=== PATIENT | female | born 1995 | race American Indian/Alaskan Native ===

== ENCOUNTER 2017-02-20 09:06 | Emergency (ER) | payer MEDICAID ==
[2017-02-20 09:29] VITALS: BP 120/86
[2017-02-20] MEDS ORDERED: D5NS 0.2% 1,000 ML IV SCH (10:00)
[2017-02-20 10:06] LABS: Basophils % (Auto) 1.1 % (0.0-1.8); Hemoglobin 9.3 gm/dl (10.1-14.3); Mean Corpuscular HGB Conc 33 % (30-34); Mean Corpuscular Volume 78 fl (79-97); Platelet Count 419 K/mm3 (140-440); Red Blood Count 3.58 M/mm3 (3.65-5.03)
[2017-02-20 10:09] LABS: Mean Corpuscular Hemoglobin 26 pg (28-32); Red Cell Distribution Width 23.1 % (13.2-15.2)
== END 2017-02-20 10:59 | disposition left against medical advice (07) ==
LOC: ED 09:06
DX: R10.9 Unspecified abdominal pain (principal); Z53.21 Procedure and treatment not carried out due to patient leaving prior to being seen by health care provider
CPT/HCPCS: 36415; 85025; 85045

== ENCOUNTER 2019-03-22 16:12 | Emergency (ER) | payer MEDICAID ==
--- NOTE | 2019-03-22 16:28 | Emergency Department Report ---
Blank Doc - Documentation Documentation: 24-year-old female that presents with bilateral legs pain with sickle cell his tory. This initial assessment/diagnostic orders/clinical plan/treatment(s) is/are subject to change based on patient's health status, clinical progression and re- assessment by fellow clinical providers in the ED. Further treatment and workup at subsequent clinical providers discretion. Patient/guardians urged not to elope from the ED as their condition may be serious if not clinically assessed and managed. Initial orders include: 1- Patient sent to MAIN for further evaluation and treatment 2- labs 3- UA
[2019-03-22 17:30] LABS: Hematocrit 29.9 % (30.3-42.9); Hemoglobin 9.7 gm/dl (10.1-14.3); Mean Corpuscular HGB Conc 33 % (30-34); Mean Corpuscular Volume 81 fl (79-97); Red Blood Count 3.68 M/mm3 (3.65-5.03); Red Cell Distribution Width 25.1 % (13.2-15.2)
[2019-03-22 17:31] LABS: Platelet Count 436 K/mm3 (140-440)
[2019-03-22 17:33] LABS: BUN/Creatinine Ratio 13; Blood Urea Nitrogen 5 mg/dL (7-17); Calcium 9.3 mg/dL (8.4-10.2); Hemolysis Index 35
[2019-03-22 18:06] LABS: Anisocytosis 2+; Basophils % (Manual) 0 % (0.0-1.8); Poikilocytosis 2+; Total Cells Counted 100
[2019-03-22 18:07] LABS: Ovalocytes Few; Sickle Cells 1+; Target Cells 1+; Tear Drop Cells Rare
[2019-03-22 18:08] LABS: Platelet Estimate Consistent w Auto
[2019-03-22] MEDS ORDERED: SODIUM CHLORIDE 0.9% 1000 ML 1,000 ML IV ONE (18:22)
[2019-03-22] MEDS ORDERED: diphenhydrAMINE 50 MG/ML VIAL IV ONE (18:22)
[2019-03-22] MEDS ORDERED: HYDROmorphone 1 MG/1 ML INJ IV ONE ×3 (18:22→21:44)
[2019-03-22] MEDS ORDERED: ONDANSETRON 4 MG/2 ML INJ IV ONE (18:22)
--- NOTE | 2019-03-22 19:33 | Emergency Department Report ---
ED General Adult HPI - General Chief complaint: Sickle Cell Crisis Stated complaint: SICKLE CELL/ANEMIA CRISIS Time Seen by Provider: 03/22/19 16:26 Source: patient Mode of arrival: Ambulatory Limitations: No Limitations - History of Present Illness Initial comments: The patient presents to the emergency department with a chief complaint of sickle cell crisis. Patient complains of bilateral leg pain is consistent with prior sickle cell crises. Patient states the last 3 days she has had no relief with Percocet and believes her crisis is secondary to the change in weather. She denies chest pain or shortness of breath. -: Sudden Location: lower extremity Radiation: extremity Severity scale (0 -10): 10 Quality: sharp Consistency: constant Improves with: none Worsens with: movement Associated Symptoms: denies other symptoms Treatments Prior to Arrival: none - Related Data Home Medications Medication Instructions Recorded Confirmed Last Taken Hydroxyurea [Hydrea] 1,500 mg PO DAILY 03/22/19 03/22/19 Unknown Oxycodone HCl/Acetaminophen 1 each PO Q2H 03/22/19 03/22/19 Unknown [Percocet 10/325 mg] Penicillin V Potassium 500 mg PO DAILY 03/22/19 03/22/19 Unknown Allergies Allergy/AdvReac Type Severity Reaction Status Date / Time ceftriaxone [From Rocephin] Allergy Anaphylaxis Verified 03/22/19 16:16 vancomycin Allergy Anaphylaxis Verified 03/22/19 16:16 ED Review of Systems ROS: Stated complaint: SICKLE CELL/ANEMIA CRISIS Other details as noted in HPI Comment: All other systems reviewed and negative Constitutional: denies: chills, fever Eyes: denies: eye pain, eye discharge, vision change ENT: denies: ear pain, throat pain Respiratory: denies: cough, shortness of breath, wheezing Cardiovascular: denies: chest pain, palpitations Endocrine: no symptoms reported Gastrointestinal: denies: abdominal pain, nausea, diarrhea Genitourinary: denies: urgency, dysuria, discharge Musculoskeletal: denies: back pain, joint swelling, arthralgia Skin: denies: rash, lesions Neurological: denies: headache, weakness, paresthesias Psychiatric: denies: anxiety, depression Hematological/Lymphatic: denies: easy bleeding, easy bruising ED Past Medical Hx - Past Medical History Previous Medical History?: Yes Hx Sickle Cell Disease: Yes Hx Asthma: Yes - Surgical History Past Surgical History?: Yes Hx Cholecystectomy: Yes Additional Surgical History: spleen, tonsilectomy - Social History Smoking Status: Never Smoker Substance Use Type: None - Medications Home Medications: Home Medications Medication Instructions Recorded Confirmed Last Taken Type Hydroxyurea [Hydrea] 1,500 mg PO DAILY 03/22/19 03/22/19 Unknown History Oxycodone HCl/Acetaminophen 1 each PO Q2H 03/22/19 03/22/19 Unknown History [Percocet 10/325 mg] Penicillin V Potassium 500 mg PO DAILY 03/22/19 03/22/19 Unknown History ED Physical Exam - General Limitations: No Limitations General appearance: alert, in no apparent distress - Head Head exam: Present: atraumatic, normocephalic - Eye Eye exam: Present: normal appearance, PERRL, EOMI - ENT ENT exam: Present: mucous membranes moist - Neck Neck exam: Present: normal inspection - Respiratory Respiratory exam: Present: normal lung sounds bilaterally. Absent: respiratory distress - Cardiovascular Cardiovascular Exam: Present: regular rate, normal rhythm. Absent: systolic murmur, diastolic murmur, rubs, gallop - GI/Abdominal GI/Abdominal exam: Present: soft, normal bowel sounds. Absent: distended, tenderness - Extremities Exam Extremities exam: Present: normal inspection - Back Exam Back exam: Present: normal inspection - Neurological Exam Neurological exam: Present: alert, oriented X3, CN II-XII intact. Absent: motor sensory deficit - Psychiatric Psychiatric exam: Present: normal affect, normal mood - Skin Skin exam: Present: warm, dry, intact, normal color. Absent: rash ED Course Vital Signs 03/22/19 03/22/19 16:17 20:43 Temperature 98.3 F Pulse Rate 85 65 Respiratory 18 20 Rate Blood Pressure 144/64 126/54 [Left] O2 Sat by Pulse 99 99 Oximetry ED Medical Decision Making - Lab Data Result diagrams: 03/22/19 16:50 03/22/19 16:50 Lab Results 03/22/19 03/22/19 03/22/19 Range/Units 16:50 16:50 16:50 WBC 11.1 H (4.5-11.0) K/mm3 RBC 3.68 (3.65-5.03) M/mm3 Hgb 9.7 L (10.1-14.3) gm/dl Hct 29.9 L (30.3-42.9) % MCV 81 (79-97) fl MCH 26 L (28-32) pg MCHC 33 (30-34) % RDW 25.1 H (13.2-15.2) % Plt Count 436 (140-440) K/mm3 Add Manual Diff Complete Total Counted 100 Seg Neuts % (Manual) 52.0 (40.0-70.0) % Band Neutrophils % 0 % Lymphocytes % (Manual) 32.0 (13.4-35.0) % Reactive Lymphs % (Man) 0 % Monocytes % (Manual) 13.0 H (0.0-7.3) % Eosinophils % (Manual) 3.0 (0.0-4.3) % Basophils % (Manual) 0 (0.0-1.8) % Metamyelocytes % 0 % Myelocytes % 0 % Promyelocytes % 0 % Blast Cells % 0 % Nucleated RBC % Not Reportable Seg Neutrophils # Man 5.8 (1.8-7.7) K/mm3 Band Neutrophils # 0.0 K/mm3 Lymphocytes # (Manual) 3.6 (1.2-5.4) K/mm3 Abs React Lymphs (Man) 0.0 K/mm3 Monocytes # (Manual) 1.4 H (0.0-0.8) K/mm3 Eosinophils # (Manual) 0.3 (0.0-0.4) K/mm3 Basophils # (Manual) 0.0 (0.0-0.1) K/mm3 Metamyelocytes # 0.0 K/mm3 Myelocytes # 0.0 K/mm3 Promyelocytes # 0.0 K/mm3 Blast Cells # 0.0 K/mm3 WBC Morphology Not Reportable Hypersegmented Neuts Not Reportable Hyposegmented Neuts Not Reportable Hypogranular Neuts Not Reportable Smudge Cells Not Reportable Toxic Granulation Not Reportable Toxic Vacuolation Not Reportable Dohle Bodies Not Reportable Pelger-Huet Anomaly Not Reportable Adwoa Rods Not Reportable Platelet Estimate Consistent w auto Clumped Platelets Not Reportable Plt Clumps, EDTA Not Reportable Large Platelets Not Reportable Giant Platelets Not Reportable Platelet Satelliting Not Reportable Plt Morphology Comment Not Reportable RBC Morphology Not Reportable Dimorphic RBCs Not Reportable Polychromasia Few Hypochromasia Not Reportable Poikilocytosis 2+ Anisocytosis 2+ Microcytosis Not Reportable Macrocytosis Not Reportable Spherocytes Not Reportable Pappenheimer Bodies Not Reportable Sickle Cells 1+ Target Cells 1+ Tear Drop Cells Rare Ovalocytes Few Helmet Cells Not Reportable Brown-Edson Bodies Not Reportable [place] Rings Not Reportable Patria Cells Not Reportable Bite Cells Not Reportable Crenated Cell Not Reportable Elliptocytes Few Acanthocytes (Spur) Not Reportable Rouleaux Not Reportable Hemoglobin C Crystals Not Reportable Schistocytes Not Reportable Malaria parasites Not Reportable Percent Retic 7.63 H (0.78-2.58) % Jose Luis Bodies Not Reportable Hem Pathologist Commnt No Sodium 137 (137-145) mmol/L Potassium 3.7 (3.6-5.0) mmol/L Chloride 105.4 (98-107) mmol/L Carbon Dioxide 19 L (22-30) mmol/L Anion Gap 16 mmol/L BUN 5 L (7-17) mg/dL Creatinine 0.4 L (0.7-1.2) mg/dL Estimated GFR > 60 ml/min BUN/Creatinine Ratio 13 % Glucose 83 (65-100) mg/dL Calcium 9.3 (8.4-10.2) mg/dL Lactate Dehydrogenase (91-180) units/L HCG, Qual Negative (Negative) 03/22/19 Range/Units 18:46 WBC (4.5-11.0) K/mm3 RBC (3.65-5.03) M/mm3 Hgb (10.1-14.3) gm/dl Hct (30.3-42.9) % MCV (79-97) fl MCH (28-32) pg MCHC (30-34) % RDW (13.2-15.2) % Plt Count (140-440) K/mm3 Add Manual Diff Total Counted Seg Neuts % (Manual) (40.0-70.0) % Band Neutrophils % % Lymphocytes % (Manual) (13.4-35.0) % Reactive Lymphs % (Man) % Monocytes % (Manual) (0.0-7.3) % Eosinophils % (Manual) (0.0-4.3) % Basophils % (Manual) (0.0-1.8) % Metamyelocytes % % Myelocytes % % Promyelocytes % % Blast Cells % % Nucleated RBC % Seg Neutrophils # Man (1.8-7.7) K/mm3 Band Neutrophils # K/mm3 Lymphocytes # (Manual) (1.2-5.4) K/mm3 Abs React Lymphs (Man) K/mm3 Monocytes # (Manual) (0.0-0.8) K/mm3 Eosinophils # (Manual) (0.0-0.4) K/mm3 Basophils # (Manual) (0.0-0.1) K/mm3 Metamyelocytes # K/mm3 Myelocytes # K/mm3 Promyelocytes # K/mm3 Blast Cells # K/mm3 WBC Morphology Hypersegmented Neuts Hyposegmented Neuts Hypogranular Neuts Smudge Cells Toxic Granulation Toxic Vacuolation Dohle Bodies Pelger-Huet Anomaly Adwoa Rods Platelet Estimate Clumped Platelets Plt Clumps, EDTA Large Platelets Giant Platelets Platelet Satelliting Plt Morphology Comment RBC Morphology Dimorphic RBCs Polychromasia Hypochromasia Poikilocytosis Anisocytosis Microcytosis Macrocytosis Spherocytes Pappenheimer Bodies Sickle Cells Target Cells Tear Drop Cells Ovalocytes Helmet Cells Brown-Edson Bodies [place] Rings [place] Cells Bite Cells Crenated Cell Elliptocytes Acanthocytes (Spur) Rouleaux Hemoglobin C Crystals Schistocytes Malaria parasites Percent Retic (0.78-2.58) % Jose Luis Bodies Hem Pathologist Commnt Sodium (137-145) mmol/L Potassium (3.6-5.0) mmol/L Chloride (98-107) mmol/L Carbon Dioxide (22-30) mmol/L Anion Gap mmol/L BUN (7-17) mg/dL Creatinine (0.7-1.2) mg/dL Estimated GFR ml/min BUN/Creatinine Ratio % Glucose (65-100) mg/dL Calcium (8.4-10.2) mg/dL Lactate Dehydrogenase 267 H (91-180) units/L HCG, Qual (Negative) - Medical Decision Making The patient has some relief of pain with 3 doses of Dilaudid Discussed admission with patient but she politely declined stating that being admitted to the hospital is depressing and would rather go home Critical care attestation.: If time is entered above; I have spent that time in minutes in the direct care of this critically ill patient, excluding procedure time. ED Disposition Clinical Impression: Sickle cell anemia with crisis Disposition: DC-01 TO HOME OR SELFCARE Is pt being admited?: No Does the pt Need Aspirin: No Condition: Stable Instructions: Sickle Cell Crisis (ED) Additional Instructions: return if worse Referrals: PRIMARY CARE, [Primary Care Provider] - 3-5 Days [facility] [Provider Group] - 3-5 Days [facility] [Provider Group] - 3-5 Days Time of Disposition: 22:50
[2019-03-22 20:44] VITALS: BP 126/54
== END 2019-03-22 23:48 | disposition home or self-care (01) ==
LOC: ED 16:12
DX: D57.219 Sickle-cell/Hb-C disease with crisis, unspecified (principal); J45.909 Unspecified asthma, uncomplicated; Z88.1 Allergy status to other antibiotic agents; Z79.899 Other long term (current) drug therapy; Z90.49 Acquired absence of other specified parts of digestive tract
CPT/HCPCS: 36415; 80048; 83615; 84703; 85007; 85025; 85045; 96374; 96375; 96376; 99283; J1170; J1200; J2405; J7030

== ENCOUNTER 2019-06-12 16:58 | Emergency (ER) | payer MEDICAID ==
--- NOTE | 2019-06-12 17:08 | Emergency Department Report ---
Blank Doc - Documentation Documentation: 24-year-old female that presents with sickle cell flare. This initial assessment/diagnostic orders/clinical plan/treatment(s) is/are subject to change based on patient's health status, clinical progression and re- assessment by fellow clinical providers in the ED. Further treatment and workup at subsequent clinical providers discretion. Patient/guardians urged not to elope from the ED as their condition may be serious if not clinically assessed and managed. Initial orders include: 1- Patient sent to MAIN ED for further evaluation and treatment 2- labs
[2019-06-12] MEDS ORDERED: diphenhydrAMINE 50 MG/ML VIAL IV ONE (19:01)
[2019-06-12] MEDS ORDERED: SODIUM CHLORIDE 0.9% 1000 ML 1,000 ML IV ONE (19:01)
[2019-06-12] MEDS ORDERED: ONDANSETRON 4 MG/2 ML INJ IV ONE (19:02)
[2019-06-12] MEDS ORDERED: KETOROLAC 30 MG/1 ML INJ IV ONE (19:02)
[2019-06-12] MEDS ORDERED: HYDROmorphone 2 MG/1 ML INJ IV ONE ×2 (19:02→20:44)
--- NOTE | 2019-06-12 19:04 | Emergency Department Report ---
ED General Adult HPI - General Chief complaint: Sickle Cell Crisis Stated complaint: SICKLE CELL CRISIS Time Seen by Provider: 06/12/19 17:06 Source: patient Mode of arrival: Ambulatory Limitations: No Limitations - History of Present Illness Initial comments: 24-year-old female with history of sickle cell disease (SC-type) presents to the ED with pain crisis. Patient reports pain 3 days to the right arm and left leg. She denies any fever, swelling, chest pain, shortness of breath. Patient states she has been taking and Percocet 10 mg at home without relief. Veterinary Livestock Inspector: Dr Shelton -: days(s) (3) Location: left, right, upper extremity, lower extremity Severity scale (0 -10): 10 Quality: aching Consistency: constant Improves with: none Worsens with: none Associated Symptoms: denies other symptoms. denies: chest pain, cough, fever/chills, shortness of breath Treatments Prior to Arrival: other (percocet) - Related Data Home Medications Medication Instructions Recorded Confirmed Last Taken Hydroxyurea [Hydrea] 1,500 mg PO DAILY 03/22/19 03/22/19 Unknown Oxycodone HCl/Acetaminophen 1 each PO Q2H 03/22/19 03/22/19 Unknown [Percocet 10/325 mg] Penicillin V Potassium 500 mg PO DAILY 03/22/19 03/22/19 Unknown Allergies Allergy/AdvReac Type Severity Reaction Status Date / Time ceftriaxone [From Rocephin] Allergy Anaphylaxis Verified 03/22/19 16:16 vancomycin Allergy Anaphylaxis Verified 03/22/19 16:16 ED Review of Systems ROS: Stated complaint: SICKLE CELL CRISIS Other details as noted in HPI Comment: All other systems reviewed and negative Constitutional: denies: chills, fever Respiratory: denies: cough, shortness of breath Cardiovascular: denies: chest pain Gastrointestinal: denies: abdominal pain, nausea, vomiting Musculoskeletal: as per HPI ED Past Medical Hx - Past Medical History Hx Sickle Cell Disease: Yes Hx Asthma: Yes - Surgical History Hx Cholecystectomy: Yes Additional Surgical History: spleen, tonsilectomy - Social History Smoking Status: Never Smoker Substance Use Type: None - Medications Home Medications: Home Medications Medication Instructions Recorded Confirmed Last Taken Type Hydroxyurea [Hydrea] 1,500 mg PO DAILY 03/22/19 03/22/19 Unknown History Oxycodone HCl/Acetaminophen 1 each PO Q2H 03/22/19 03/22/19 Unknown History [Percocet 10/325 mg] Penicillin V Potassium 500 mg PO DAILY 03/22/19 03/22/19 Unknown History ED Physical Exam - General Limitations: No Limitations General appearance: alert, in no apparent distress, other (appears uncomfortable) - Head Head exam: Present: atraumatic, normocephalic - Eye Eye exam: Present: normal appearance - ENT ENT exam: Present: mucous membranes moist - Neck Neck exam: Present: normal inspection - Respiratory Respiratory exam: Present: normal lung sounds bilaterally. Absent: respiratory distress - Cardiovascular Cardiovascular Exam: Present: normal rhythm, tachycardia - GI/Abdominal GI/Abdominal exam: Present: soft. Absent: distended, tenderness - Extremities Exam Extremities exam: Present: normal inspection. Absent: joint swelling - Neurological Exam Neurological exam: Present: alert, oriented X3 - Psychiatric Psychiatric exam: Present: normal affect, normal mood - Skin Skin exam: Present: warm, dry, intact, normal color ED Course Vital Signs 06/12/19 06/12/19 06/12/19 17:07 19:02 20:44 Temperature 98.9 F Pulse Rate 114 H 84 Respiratory 18 16 16 Rate Blood Pressure 199/88 Blood Pressure 134/62 [Left] O2 Sat by Pulse 100 96 Oximetry ED Medical Decision Making - Lab Data Result diagrams: 06/12/19 20:59 06/12/19 20:59 - Medical Decision Making Hb 9.4, retic count of 6. Pt received dilaudid x3, IV fluids, toradol, benadryl. Pt feeling much better at this time. Ambulated to and from restroom without difficulty. Pt feels ok for discharge home, does not feel like she needs to be hospitalized. Veterinary Livestock Inspector f/u advised. - Differential Diagnosis sickle pain crisis Critical care attestation.: If time is entered above; I have spent that time in minutes in the direct care of this critically ill patient, excluding procedure time. ED Disposition Clinical Impression: Sickle cell anemia with crisis Disposition: -01 TO HOME OR SELFCARE Is pt being admited?: No Condition: Stable Instructions: Sickle Cell Crisis (ED) Referrals: PRIMARY CARE, [Primary Care Provider] - 3-5 Days Time of Disposition: 22:30
[2019-06-12 21:09] LABS: Hematocrit 28.4 % (30.3-42.9); Hemoglobin 9.4 gm/dl (10.1-14.3); Mean Corpuscular HGB Conc 33 % (30-34); Mean Corpuscular Volume 81 fl (79-97); Platelet Count 390 K/mm3 (140-440); Red Blood Count 3.51 M/mm3 (3.65-5.03)
[2019-06-12 21:10] LABS: Red Cell Distribution Width 24.1 % (13.2-15.2)
[2019-06-12 21:33] LABS: BUN/Creatinine Ratio 15; Blood Urea Nitrogen 6 mg/dL (7-17); Calcium 9.4 mg/dL (8.4-10.2); Hemolysis Index 25
[2019-06-12 21:34] VITALS: BP 134/62
[2019-06-12 21:38] LABS: Basophils % (Manual) 0 % (0.0-1.8); Total Cells Counted 100
[2019-06-12 21:39] LABS: Platelet Estimate Consistent w Auto
[2019-06-12 21:40] LABS: Anisocytosis 2+; Sickle Cells 1+; Target Cells 2+
[2019-06-12] MEDS ORDERED: ALUM-MAG HYDROXIDE-SIMETHICONE 200-200-20MG/5ML ORAL LIQD 30 ML PO ONE (22:05)
[2019-06-12] MEDS ORDERED: HYDROmorphone 1 MG/1 ML INJ IV ONE (22:06)
== END 2019-06-12 22:56 | disposition home or self-care (01) ==
LOC: ED 16:58
DX: D57.00 Hb-SS disease with crisis, unspecified (principal); M79.601 Pain in right arm; M79.604 Pain in right leg; J45.909 Unspecified asthma, uncomplicated; Z88.8 Allergy status to other drugs, medicaments and biological substances; Z79.899 Other long term (current) drug therapy
CPT/HCPCS: 36415; 80048; 84703; 85007; 85025; 85045; 96374; 96375; 96376; 99283; J1170; J1200; J1885; J2405; J7030

== ENCOUNTER 2019-09-13 17:17 | Emergency (ER) | payer MEDICAID ==
[2019-09-13] MEDS ORDERED: SODIUM CHLORIDE 0.9% 1000 ML 1,000 ML IV ONE (17:52)
--- NOTE | 2019-09-13 17:54 | Event Note ---
ED Screening Note Date of service: 09/13/19 Time: 17:53 ED Screening Note: 24 y/o female comes in for SCD crisis. This initial assessment/diagnostic orders/clinical plan/treatment(s) is/are subject to change based on patients health status, clinical progression and re- assessment by fellow clinical providers in the ED. Further treatment and workup at subsequent clinical providers discretion. Patient/guardian urged not to elope from the ED as their condition may be serious if not clinically assessed and managed. Initial orders include:
[2019-09-13 18:26] LABS: Hematocrit 30.3 % (30.3-42.9); Hemoglobin 9.9 gm/dl (10.1-14.3); Mean Corpuscular HGB Conc 33 % (30-34); Mean Corpuscular Volume 80 fl (79-97); Platelet Count 467 K/mm3 (140-440); Red Blood Count 3.81 M/mm3 (3.65-5.03)
[2019-09-13 18:27] LABS: Red Cell Distribution Width 22.5 % (13.2-15.2)
[2019-09-13] MEDS ORDERED: diphenhydrAMINE 50 MG/ML VIAL IV ONE ×2 (18:32→20:58)
[2019-09-13] MEDS ORDERED: HYDROmorphone 1 MG/1 ML INJ IV ONE ×3 (18:32→21:04)
[2019-09-13] MEDS ORDERED: ONDANSETRON 4 MG/2 ML INJ IV ONE (18:32)
[2019-09-13] MEDS ORDERED: KETOROLAC 30 MG/1 ML INJ IV ONE (18:32)
[2019-09-13 18:50] LABS: Alanine Aminotransferase 47 units/L (7-56); Albumin 4.5 g/dL (3.9-5); BUN/Creatinine Ratio 10; Blood Urea Nitrogen 5 mg/dL (7-17); Calcium 9.5 mg/dL (8.4-10.2); Hemolysis Index 4
[2019-09-13] MEDS ORDERED: D5W/0.2% NACL 1,000 ML IV SCH (19:00)
[2019-09-13 19:39] LABS: Anisocytosis 2+; Total Cells Counted 100
[2019-09-13 19:40] LABS: Large Platelets Few; Macrocytosis 1+; Platelet Estimate Consistent w Auto; Sickle Cells 1+; Target Cells 1+
[2019-09-13] MEDS ORDERED: LORazepam 1 MG TAB PO ONE (21:04)
--- NOTE | 2019-09-13 23:26 | Emergency Department Report ---
ED General Adult HPI - General Chief complaint: Sickle Cell Crisis Stated complaint: SICKEL CELL CRISIS Time Seen by Provider: 09/13/19 17:51 Source: patient Mode of arrival: Ambulatory Limitations: No Limitations - History of Present Illness Initial comments: Patient is a 24-year-old F [place] female with SC disease who is complaining of bilateral leg pain. Patient states pain is been present for approximately 2 days. She is out of her Percocet at this time. Patient denies fever nausea vomiting or diarrhea. Pain is a 10 out of 10 in severity. After arriving patient also states she has right arm pain. States his pain is typical of her sickle cell crisis. Severity scale (0 -10): 2 - Related Data Home Medications Medication Instructions Recorded Confirmed Last Taken Hydroxyurea [Hydrea] 1,500 mg PO DAILY 03/22/19 03/22/19 Unknown Oxycodone HCl/Acetaminophen 1 each PO Q2H 03/22/19 03/22/19 Unknown [Percocet 10/325 mg] Penicillin V Potassium 500 mg PO DAILY 03/22/19 03/22/19 Unknown Allergies Allergy/AdvReac Type Severity Reaction Status Date / Time ceftriaxone [From Rocephin] Allergy Anaphylaxis Verified 09/13/19 17:21 vancomycin Allergy Anaphylaxis Verified 09/13/19 17:21 ED Review of Systems ROS: Stated complaint: SICKEL CELL CRISIS Other details as noted in HPI Comment: All other systems reviewed and negative ED Past Medical Hx - Past Medical History Previous Medical History?: Yes Hx Sickle Cell Disease: Yes Hx Asthma: Yes - Surgical History Past Surgical History?: Yes Hx Cholecystectomy: Yes Additional Surgical History: spleen, tonsilectomy - Social History Smoking Status: Never Smoker Substance Use Type: None - Medications Home Medications: Home Medications Medication Instructions Recorded Confirmed Last Taken Type Hydroxyurea [Hydrea] 1,500 mg PO DAILY 03/22/19 03/22/19 Unknown History Oxycodone HCl/Acetaminophen 1 each PO Q2H 03/22/19 03/22/19 Unknown History [Percocet 10/325 mg] Penicillin V Potassium 500 mg PO DAILY 03/22/19 03/22/19 Unknown History ED Physical Exam - General Limitations: No Limitations General appearance: alert, in distress - Head Head exam: Present: atraumatic, normocephalic - Eye Eye exam: Present: normal appearance - ENT ENT exam: Present: mucous membranes moist - Neck Neck exam: Present: normal inspection - Respiratory Respiratory exam: Present: normal lung sounds bilaterally. Absent: respiratory distress, wheezes, rales, rhonchi - Cardiovascular Cardiovascular Exam: Present: regular rate, normal rhythm, normal heart sounds. Absent: systolic murmur, diastolic murmur, rubs, gallop - GI/Abdominal GI/Abdominal exam: Present: soft, normal bowel sounds. Absent: distended, tenderness, guarding, rebound - Extremities Exam Extremities exam: Present: normal inspection - Back Exam Back exam: Present: normal inspection - Neurological Exam Neurological exam: Present: alert, oriented X3 - Psychiatric Psychiatric exam: Present: normal affect, normal mood - Skin Skin exam: Present: warm, dry, intact, normal color. Absent: rash ED Course Vital Signs 09/13/19 09/13/19 09/13/19 19:57 19:58 20:12 Respiratory 22 22 20 Rate ED Medical Decision Making - Lab Data Result diagrams: 09/13/19 18:12 09/13/19 18:12 Lab Results 09/13/19 09/13/19 09/13/19 Range/Units 18:12 18:12 21:34 WBC 16.7 H (4.5-11.0) K/mm3 RBC 3.81 (3.65-5.03) M/mm3 Hgb 9.9 L (10.1-14.3) gm/dl Hct 30.3 (30.3-42.9) % MCV 80 (79-97) fl MCH 26 L (28-32) pg MCHC 33 (30-34) % RDW 22.5 H (13.2-15.2) % Plt Count 467 H (140-440) K/mm3 Lymph # Delivery Helper Add Manual Diff Complete Total Counted 100 Seg Neuts % (Manual) 56.0 (40.0-70.0) % Band Neutrophils % 0 % Lymphocytes % (Manual) 31.0 (13.4-35.0) % Reactive Lymphs % (Man) 0 % Monocytes % (Manual) 6.0 (0.0-7.3) % Eosinophils % (Manual) 4.0 (0.0-4.3) % Basophils % (Manual) 3.0 H (0.0-1.8) % Metamyelocytes % 0 % Myelocytes % 0 % Promyelocytes % 0 % Blast Cells % 0 % Nucleated RBC % 2.0 H (0.0-0.9) % Seg Neutrophils # Man 9.4 H (1.8-7.7) K/mm3 Band Neutrophils # 0.0 K/mm3 Lymphocytes # (Manual) 5.2 (1.2-5.4) K/mm3 Abs React Lymphs (Man) 0.0 K/mm3 Monocytes # (Manual) 1.0 H (0.0-0.8) K/mm3 Eosinophils # (Manual) 0.7 H (0.0-0.4) K/mm3 Basophils # (Manual) 0.5 H (0.0-0.1) K/mm3 Metamyelocytes # 0.0 K/mm3 Myelocytes # 0.0 K/mm3 Promyelocytes # 0.0 K/mm3 Blast Cells # 0.0 K/mm3 WBC Morphology Not Reportable Hypersegmented Neuts Not Reportable Hyposegmented Neuts Not Reportable Hypogranular Neuts Not Reportable Smudge Cells Not Reportable Toxic Granulation Not Reportable Toxic Vacuolation Not Reportable Dohle Bodies Not Reportable Pelger-Huet Anomaly Not Reportable Adwoa Rods Not Reportable Platelet Estimate Consistent w auto Clumped Platelets Not Reportable Plt Clumps, EDTA Not Reportable Large Platelets Few Giant Platelets Not Reportable Platelet Satelliting Not Reportable Plt Morphology Comment Not Reportable RBC Morphology Not Reportable Dimorphic RBCs Not Reportable Polychromasia Few Hypochromasia Not Reportable Poikilocytosis Not Reportable Anisocytosis 2+ Microcytosis 1+ Macrocytosis 1+ Spherocytes Not Reportable Pappenheimer Bodies Not Reportable Sickle Cells 1+ Target Cells 1+ Tear Drop Cells Not Reportable Ovalocytes Not Reportable Helmet Cells Not Reportable [place] Bodies Not Reportable Rule Rings Not Reportable [place] Cells Not Reportable Bite Cells Not Reportable Crenated Cell Not Reportable Elliptocytes Not Reportable Acanthocytes (Spur) Not Reportable Rouleaux Not Reportable Hemoglobin C Crystals Not Reportable Schistocytes Not Reportable Malaria parasites Not Reportable Percent Retic 6.05 H 6.19 H (0.78-2.58) % Jose Luis Bodies Not Reportable Hem Pathologist Commnt No Sodium 139 (137-145) mmol/L Potassium 3.7 (3.6-5.0) mmol/L Chloride 106.0 (98-107) mmol/L Carbon Dioxide 21 L (22-30) mmol/L Anion Gap 16 mmol/L BUN 5 L (7-17) mg/dL Creatinine 0.5 L (0.7-1.2) mg/dL Estimated GFR > 60 ml/min BUN/Creatinine Ratio 10 % Glucose 103 H (65-100) mg/dL Calcium 9.5 (8.4-10.2) mg/dL Total Bilirubin 1.10 (0.1-1.2) mg/dL AST 52 H (5-40) units/L ALT 47 (7-56) units/L Alkaline Phosphatase 86 (35-129) units/L Total Protein 7.7 (6.3-8.2) g/dL Albumin 4.5 (3.9-5) g/dL Albumin/Globulin Ratio 1.4 % - Medical Decision Making Patient received multiple doses of Dilaudid here in the emergency department as well as Toradol and IV fluids. Patient was noted to be resting comfortably at t imes and was very comfortable while trying to negotiate for additional pain medications. Patient was noted also to be talking comfortably on the phone several times however when she would hang up she would begin to cry stating that her pain was unbearable. While negotiating further pain medications patient did admit that her pain was not better after the 4 mg of Dilaudid but was not the level she wanted to be for discharge. Patient does not appear to be in severe pain was when in the room alone. Patient was noted to be ambulating to the bathroom without a limp. Patient grew angry that we were not giving any additional doses of Dilaudid and she decided to leave AGAINST MEDICAL ADVICE bef ore her fluids have finished. Critical care attestation.: If time is entered above; I have spent that time in minutes in the direct care of this critically ill patient, excluding procedure time. ED Disposition Clinical Impression: Sickle cell anemia with pain Disposition: DC-07 LEFT AGAINST MED ADVICE Is pt being admited?: No Does the pt Need Aspirin: No Condition: Stable Referrals: PRIMARY CARE, [Primary Care Provider] - 3-5 Days Forms: AMA Form Time of Disposition: 23:26
== END 2019-09-13 23:45 | disposition left against medical advice (07) ==
LOC: ED 17:17
DX: D57.80 Other sickle-cell disorders without crisis (principal); J45.909 Unspecified asthma, uncomplicated; Z90.49 Acquired absence of other specified parts of digestive tract; Z90.89 Acquired absence of other organs; Z79.899 Other long term (current) drug therapy; Z88.1 Allergy status to other antibiotic agents
CPT/HCPCS: 36415; 80053; 85007; 85025; 85045; 96374; 96375; 96376; 99283; J1170; J1200; J1885; J2405; J7030

== ENCOUNTER 2019-09-21 21:18 | Emergency (ER) | payer MEDICAID ==
[2019-09-21 21:33] VITALS: BP 142/70
[2019-09-21 21:55] LABS: Hematocrit 29.3 % (30.3-42.9); Hemoglobin 9.5 gm/dl (10.1-14.3); Mean Corpuscular HGB Conc 32 % (30-34); Mean Corpuscular Volume 85 fl (79-97); Platelet Count 408 K/mm3 (140-440); Red Blood Count 3.44 M/mm3 (3.65-5.03); Red Cell Distribution Width 30.3 % (13.2-15.2)
[2019-09-21] MEDS ORDERED: HYDROmorphone 2 MG/1 ML INJ IV ONE ×2 (22:05→22:37)
[2019-09-21] MEDS ORDERED: diphenhydrAMINE 50 MG/ML VIAL IV ONE (22:05)
[2019-09-21] MEDS ORDERED: SODIUM CHLORIDE 0.9% 1000 ML 1,000 ML IV ONE (22:05)
[2019-09-21 22:06] LABS: Alanine Aminotransferase 31 units/L (7-56); Albumin 4.9 g/dL (3.9-5); BUN/Creatinine Ratio 14; Blood Urea Nitrogen 7 mg/dL (7-17); Calcium 10.4 mg/dL (8.4-10.2); Hemolysis Index 21
--- NOTE | 2019-09-21 22:07 | Emergency Department Report ---
ED General Adult HPI - General Chief complaint: Sickle Cell Crisis Stated complaint: SICKLE CELL CRISIS PUI?: No Time Seen by Provider: 09/21/19 22:03 Source: patient Mode of arrival: Ambulatory Limitations: No Limitations - History of Present Illness Initial comments: Patient is a 24-year-old female that presents emergency room with complaints of leg pain and lower back pain. Patient states she is having a sickle cell crisis . Patient states she ran out of her oxycodone . Patient states she is taking her hydroxyurea as prescribed. Patient states the pain is a 10 out of 10. Patient states it started this morning. Patient states the pain is worsening. Patient states the pain is better with rest and worse with movement. -: Sudden Location: back, lower extremity Radiation: non-radiation Severity scale (0 -10): 10 Quality: stabbing Consistency: constant Improves with: rest Worsens with: movement, other Associated Symptoms: denies other symptoms. denies: confusion, chest pain, cough, diaphoresis, fever/chills, headaches, loss of appetite, malaise, nausea/vomiting, rash, seizure, shortness of breath, syncope, weakness Treatments Prior to Arrival: NSAID - Related Data Home Medications Medication Instructions Recorded Confirmed Last Taken Hydroxyurea [Hydrea] 1,500 mg PO DAILY 03/22/19 03/22/19 Unknown Oxycodone HCl/Acetaminophen 1 each PO Q2H 03/22/19 03/22/19 Unknown [Percocet 10/325 mg] Penicillin V Potassium 500 mg PO DAILY 03/22/19 03/22/19 Unknown Previous Rx's Medication Instructions Recorded Last Taken Type HYDROcodone/APAP 10-325 [[place] 1 each PO Q4HR PRN #15 tablet 09/21/19 Unknown Rx 10/325] Allergies Allergy/AdvReac Type Severity Reaction Status Date / Time ceftriaxone [From Rocephin] Allergy Anaphylaxis Verified 09/21/19 21:22 peanut Allergy Anaphylaxis Verified 09/21/19 21:22 vancomycin Allergy Anaphylaxis Verified 09/21/19 21:22 ED Review of Systems ROS: Stated complaint: SICKLE CELL CRISIS Other details as noted in HPI Constitutional: denies: chills, fever Eyes: denies: eye pain, eye discharge, vision change ENT: denies: ear pain, throat pain Respiratory: denies: cough, shortness of breath, wheezing Cardiovascular: denies: chest pain, palpitations Endocrine: no symptoms reported Gastrointestinal: denies: abdominal pain, nausea, diarrhea Genitourinary: denies: urgency, dysuria, discharge Musculoskeletal: back pain. denies: joint swelling, arthralgia Skin: denies: rash, lesions Neurological: denies: headache, weakness, paresthesias Psychiatric: denies: anxiety, depression Hematological/Lymphatic: denies: easy bleeding, easy bruising ED Past Medical Hx - Past Medical History Previous Medical History?: Yes Hx Sickle Cell Disease: Yes Hx Asthma: Yes - Surgical History Past Surgical History?: Yes Hx Cholecystectomy: Yes Additional Surgical History: spleen, tonsilectomy - Family History Family history: no significant - Social History Smoking Status: Never Smoker Substance Use Type: None - Medications Home Medications: Home Medications Medication Instructions Recorded Confirmed Last Taken Type Hydroxyurea [Hydrea] 1,500 mg PO DAILY 03/22/19 03/22/19 Unknown History Oxycodone HCl/Acetaminophen 1 each PO Q2H 03/22/19 03/22/19 Unknown History [Percocet 10/325 mg] Penicillin V Potassium 500 mg PO DAILY 03/22/19 03/22/19 Unknown History HYDROcodone/APAP 10-325 [[place] 1 each PO Q4HR PRN #15 tablet 09/21/19 Unknown Rx 10/325] ED Physical Exam - General Limitations: No Limitations General appearance: alert, in no apparent distress - Head Head exam: Present: atraumatic, normocephalic - Eye Eye exam: Present: normal appearance - ENT ENT exam: Present: mucous membranes moist - Neck Neck exam: Present: normal inspection - Respiratory Respiratory exam: Present: normal lung sounds bilaterally. Absent: respiratory distress - Cardiovascular Cardiovascular Exam: Present: regular rate, normal rhythm. Absent: systolic murmur, diastolic murmur, rubs, gallop - GI/Abdominal GI/Abdominal exam: Present: soft, normal bowel sounds. Absent: distended, tenderness, guarding - Extremities Exam Extremities exam: Present: normal inspection - Back Exam Back exam: Present: normal inspection - Neurological Exam Neurological exam: Present: alert, oriented X3 - Psychiatric Psychiatric exam: Present: normal affect, normal mood - Skin Skin exam: Present: warm, dry, intact, normal color. Absent: rash ED Course Vital Signs 09/21/19 21:23 Temperature 99.1 F Pulse Rate 108 H Respiratory 20 Rate Blood Pressure 142/70 O2 Sat by Pulse 98 Oximetry - Reevaluation(s) Reevaluation #1: Patient states her pain is better. Patient states she already has a prescription for oxycodone but will be able to pick it up for a week.. Patient is status post 4 mg of Dilaudid and fluids. I discussed all results and clinical findings with patient. I discussed plan of care with patient. Patient agrees with plan of care. Patient is stable for discharge. Patient will be discharged home. Patient given discharge instructions. Patient voiced understanding of discharge instructions. 09/21/19 23:30 ED Medical Decision Making - Lab Data Result diagrams: 09/21/19 21:31 09/21/19 21:31 - Medical Decision Making Patient is a 24-year-old female that presents emergency room with complaints of sickle cell crisis, leg pain and back pain. Patient was given 4 mg of Dilaudid in the ER and responded well to treatment. Patient's pain improved. Patient is labs were done and were consistent with an elevated reticulocytosis and anemia. Patient already has a prescription for oxycodone but patient is unable to pick it up until Thursday. Patient increase her use of oxycodone due to being under a lot of stress and having more pain. Patient given a hydrocodone prescription in order to allow the patient to have some pain relief and a pain medication at home until she can pickle maker her regular oxycodone prescription. Patient given discharge instructions. Patient stable for discharge. - Differential Diagnosis Sickle cell pain, leg pain, back pain Critical care attestation.: If time is entered above; I have spent that time in minutes in the direct care of this critically ill patient, excluding procedure time. ED Disposition Clinical Impression: Sickle cell anemia with pain Disposition: DC-01 TO HOME OR SELFCARE Is pt being admited?: No Does the pt Need Aspirin: No Condition: Stable Instructions: Sickle Cell Crisis (ED) Additional Instructions: Patient to follow-up with primary care in 2 to 3 days. Patient to follow-up with market research coordinator in 2 to 3 days. Patient to rest. Patient to increase water. Patient to take Tylenol or ibuprofen as needed for pain. Patient to return to the ER if condition worsens, changes or new symptoms arise. Prescriptions: HYDROcodone/APAP 10-325 [[place] 10/325] 1 each PO Q4HR PRN #15 tablet PRN Reason: Pain Referrals: JOSE CALLEJAS MD [Primary Care Provider] - 2-3 Days Time of Disposition: 23:32
[2019-09-21 22:23] LABS: Basophils % (Manual) 0 % (0.0-1.8); Eosinophils % (Manual) 0 % (0.0-4.3); Total Cells Counted 100
[2019-09-21 22:25] LABS: Anisocytosis 2+; Platelet Estimate Consistent w Auto; Sickle Cells 1+; Target Cells 2+
[2019-09-21] MEDS ORDERED: ONDANSETRON 4 MG/2 ML INJ ONE (23:18)
[2019-09-21] MEDS ORDERED: KETOROLAC 30 MG/1 ML INJ IV ONE (23:33)
== END 2019-09-22 00:18 | disposition home or self-care (01) ==
LOC: ED 21:18
DX: D57.1 Sickle-cell disease without crisis (principal); M79.606 Pain in leg, unspecified; M54.5 Low back pain; J45.909 Unspecified asthma, uncomplicated; Z90.49 Acquired absence of other specified parts of digestive tract; Z90.89 Acquired absence of other organs; Z79.2 Long term (current) use of antibiotics; Z79.899 Other long term (current) drug therapy; Z91.010 Allergy to peanuts; Z88.8 Allergy status to other drugs, medicaments and biological substances
CPT/HCPCS: 36415; 80053; 84703; 85007; 85025; 85045; 96374; 96375; 96376; 99283; J1170; J1200; J1885; J2405; J7030

== ENCOUNTER 2019-10-19 03:22 | Emergency (ER) | payer MEDICAID ==
[2019-10-19] MEDS ORDERED: HYDROmorphone 1 MG/1 ML INJ IV ONE ×2 (03:53→05:47)
[2019-10-19] MEDS ORDERED: diphenhydrAMINE 50 MG/ML VIAL IV ONE ×2 (03:53→05:47)
[2019-10-19] MEDS ORDERED: KETOROLAC 30 MG/1 ML INJ IV ONE (03:53)
[2019-10-19] MEDS ORDERED: SODIUM CHLORIDE 0.9% 1000 ML 1,000 ML IV ONE ×2 (03:53)
[2019-10-19 04:37] LABS: Hematocrit 29.3 % (30.3-42.9); Hemoglobin 9.5 gm/dl (10.1-14.3); Mean Corpuscular HGB Conc 33 % (30-34); Mean Corpuscular Volume 79 fl (79-97); Platelet Count 392 K/mm3 (140-440); Red Blood Count 3.72 M/mm3 (3.65-5.03)
[2019-10-19] MEDS ORDERED: dexAMETHasone 20 MG/5 ML VIAL IM ONE (04:43)
[2019-10-19 04:57] LABS: Red Cell Distribution Width 26.3 % (13.2-15.2)
[2019-10-19 04:58] LABS: BUN/Creatinine Ratio 10; Blood Urea Nitrogen 5 mg/dL (7-17); Calcium 9.7 mg/dL (8.4-10.2); Hemolysis Index 17
--- NOTE | 2019-10-19 05:42 | Emergency Department Report ---
ED General Adult HPI - General Chief complaint: Sickle Cell Crisis Stated complaint: SICKLE CELL PAIN Time Seen by Provider: 10/19/19 03:48 Source: patient Mode of arrival: Ambulatory Limitations: No Limitations - History of Present Illness Initial comments: Patient is a 24-year-old F Brazilian female with history of sickle cell SS C disease who is presenting with right leg left arm pain. Patient is compliant with her medications. Patient is been here in emergency department multiple times over the last several months. Patient states she has an appointment to see her primary care physician in 2 days. Patient denies fevers chills nausea vomiting. She does state that she has some sinus pressure and pain as well as inability to take a deep breath through her nose. Severity scale (0 -10): 8 - Related Data Home Medications Medication Instructions Recorded Confirmed Last Taken Hydroxyurea [Hydrea] 1,500 mg PO DAILY 03/22/19 03/22/19 Unknown Oxycodone HCl/Acetaminophen 1 each PO Q2H 03/22/19 03/22/19 Unknown [Percocet 10/325 mg] Penicillin V Potassium 500 mg PO DAILY 03/22/19 03/22/19 Unknown Previous Rx's Medication Instructions Recorded Last Taken Type HYDROcodone/APAP 10-325 [[place] 1 each PO Q4HR PRN #15 tablet 09/21/19 Unknown Rx 10/325] Azithromycin [Zithromax Z-GLENNY] 250 mg PO DAILY #6 tablet 10/19/19 Unknown Rx predniSONE [Deltasone] 20 mg PO QDAY #5 tab 10/19/19 Unknown Rx Allergies Allergy/AdvReac Type Severity Reaction Status Date / Time ceftriaxone [From Rocephin] Allergy Anaphylaxis Verified 09/21/19 21:22 peanut Allergy Anaphylaxis Verified 09/21/19 21:22 vancomycin Allergy Anaphylaxis Verified 09/21/19 21:22 ED Review of Systems ROS: Stated complaint: SICKLE CELL PAIN Other details as noted in HPI Comment: All other systems reviewed and negative ED Past Medical Hx - Past Medical History Hx Sickle Cell Disease: Yes Hx Asthma: Yes - Surgical History Hx Cholecystectomy: Yes Additional Surgical History: spleen, tonsilectomy - Social History Smoking Status: Never Smoker Substance Use Type: None - Medications Home Medications: Home Medications Medication Instructions Recorded Confirmed Last Taken Type Hydroxyurea [Hydrea] 1,500 mg PO DAILY 03/22/19 03/22/19 Unknown History Oxycodone HCl/Acetaminophen 1 each PO Q2H 03/22/19 03/22/19 Unknown History [Percocet 10/325 mg] Penicillin V Potassium 500 mg PO DAILY 03/22/19 03/22/19 Unknown History HYDROcodone/APAP 10-325 [[place] 1 each PO Q4HR PRN #15 tablet 09/21/19 Unknown Rx 10325] Azithromycin [Zithromax Z-GLENNY] 250 mg PO DAILY #6 tablet 10/19/19 Unknown Rx predniSONE [Deltasone] 20 mg PO QDAY #5 tab 10/19/19 Unknown Rx ED Physical Exam - General Limitations: No Limitations General appearance: alert, in no apparent distress - Head Head exam: Present: atraumatic, normocephalic - Eye Eye exam: Present: normal appearance, PERRL, EOMI - ENT ENT exam: Present: mucous membranes moist, other (Frontal and ethmoid sinus tenderness) - Neck Neck exam: Present: normal inspection - Respiratory Respiratory exam: Present: normal lung sounds bilaterally. Absent: respiratory distress, wheezes, rales, rhonchi - Cardiovascular Cardiovascular Exam: Present: regular rate, normal rhythm, normal heart sounds. Absent: systolic murmur, diastolic murmur, rubs, gallop - GI/Abdominal GI/Abdominal exam: Present: soft, normal bowel sounds. Absent: distended, tenderness, guarding, rebound - Extremities Exam Extremities exam: Present: normal inspection - Back Exam Back exam: Present: normal inspection - Neurological Exam Neurological exam: Present: alert, oriented X3 - Psychiatric Psychiatric exam: Present: normal affect, normal mood - Skin Skin exam: Present: warm, dry, intact, normal color. Absent: rash ED Course Vital Signs 10/19/19 10/19/19 03:32 04:55 Temperature 98.4 F Pulse Rate 92 H Respiratory 20 18 Rate Blood Pressure 133/76 O2 Sat by Pulse 99 98 Oximetry ED Medical Decision Making - Lab Data Result diagrams: 10/19/19 04:25 10/19/19 04:25 - Medical Decision Making Patient was hydrated and given ultimately 4 mg of Dilaudid. Body aches are decreasing. Patient also be started on a Z-Glenny for presumed acute sinusitis. Patient is allergic to Augmentin Critical care attestation.: If time is entered above; I have spent that time in minutes in the direct care of this critically ill patient, excluding procedure time. ED Disposition Clinical Impression: Sickle cell anemia with crisis Acute sinusitis Qualifiers: Sinusitis location: unspecified location Recurrence: non-recurrent Qualified Code(s): J01.90 - Acute sinusitis, unspecified Disposition: TO HOME OR SELFCARE Is pt being admited?: No Does the pt Need Aspirin: No Condition: Stable Instructions: Sinusitis (ED), Sickle Cell Crisis (ED) Referrals: PRIMARY CARE, [Primary Care Provider] - 3-5 Days Time of Disposition: 05:46
[2019-10-19] MEDS ORDERED: HYDROmorphone 2 MG/1 ML INJ ONE (05:44)
[2019-10-19 06:36] VITALS: BP 156/90
[2019-10-19 06:48] LABS: Anisocytosis 2+; Hypochromasia 1+; Total Cells Counted 100
[2019-10-19 06:49] LABS: Ovalocytes Rare; Schistocytes Rare; Sickle Cells Few; Target Cells 1+
[2019-10-19 06:50] LABS: Platelet Estimate Consistent w Auto
== END 2019-10-19 07:02 | disposition home or self-care (01) ==
LOC: ED 03:22
DX: D57.00 Hb-SS disease with crisis, unspecified (principal); J01.90 Acute sinusitis, unspecified; J45.909 Unspecified asthma, uncomplicated; Z88.8 Allergy status to other drugs, medicaments and biological substances; Z91.010 Allergy to peanuts; Z79.899 Other long term (current) drug therapy; Z98.890 Other specified postprocedural states; Z90.49 Acquired absence of other specified parts of digestive tract
CPT/HCPCS: 36415; 80048; 85007; 85025; 85045; 96372; 96374; 96375; 96376; 99283; J1100; J1170; J1200; J1885; J7030

== ENCOUNTER 2019-10-28 03:25 | Inpatient (IN) | payer MEDICAID ==
[2019-10-28 04:21] LABS: Hematocrit 29.9 % (30.3-42.9); Hemoglobin 9.5 gm/dl (10.1-14.3); Mean Corpuscular HGB Conc 32 % (30-34); Mean Corpuscular Volume 88 fl (79-97); Platelet Count 406 K/mm3 (140-440); Red Blood Count 3.42 M/mm3 (3.65-5.03)
[2019-10-28 04:40] LABS: Red Cell Distribution Width 33.2 % (13.2-15.2)
[2019-10-28 05:11] LABS: Anisocytosis 3+; Basophils % (Manual) 0 % (0.0-1.8); Eosinophils % (Manual) 0 % (0.0-4.3); Total Cells Counted 100
[2019-10-28 05:12] LABS: Hypochromasia 1+; Ovalocytes Rare; Schistocytes Rare; Sickle Cells Few; Target Cells 1+
[2019-10-28 05:13] LABS: Platelet Estimate Consistent w Auto; Tear Drop Cells Rare
[2019-10-28] MEDS ORDERED: ONDANSETRON 4 MG/2 ML INJ IV ONE (06:56)
[2019-10-28] MEDS ORDERED: KETOROLAC 30 MG/1 ML INJ IV ONE ×2 (06:56→13:00)
[2019-10-28] MEDS ORDERED: fentaNYL 100 MCG/2 ML INJ IV ONE (06:56)
--- NOTE | 2019-10-28 07:02 | Emergency Department Report ---
HPI - General Chief Complaint: Sickle Cell Crisis PUI?: No Time Seen by Provider: 10/28/19 06:47 - HPI HPI: Room 7 The patient is a 24-year-old female present with a chief complaint of sickle cell pain crisis. Patient states she developed pain in bilateral lower extremities consistent with her sickle cell pain crises. Patient also complains of intermittent constipation. Patient denies nausea vomiting or fever. Patient states she has passing gas. ED Past Medical Hx - Past Medical History Previous Medical History?: Yes Hx Sickle Cell Disease: Yes Hx Asthma: Yes Additional medical history: scoliosis, - Surgical History Past Surgical History?: Yes Hx Cholecystectomy: Yes Additional Surgical History: Splenectomy, tonsilectomy - Social History Smoking Status: Never Smoker Substance Use Type: None (Denies illicit drug use), Alcohol (Occasional) - Medications Home Medications: Home Medications Medication Instructions Recorded Confirmed Last Taken Type Hydroxyurea [Hydrea] 1,500 mg PO DAILY 03/22/19 03/22/19 Unknown History Oxycodone HCl/Acetaminophen 1 each PO Q2H 03/22/19 03/22/19 Unknown History [Percocet 10/325 mg] Penicillin V Potassium 500 mg PO DAILY 03/22/19 03/22/19 Unknown History HYDROcodone/APAP 10-325 [[place] 1 each PO Q4HR PRN #15 tablet 09/21/19 Unknown Rx 10/325] Azithromycin [Zithromax Z-GLENNY] 250 mg PO DAILY #6 tablet 10/19/19 Unknown Rx predniSONE [Deltasone] 20 mg PO QDAY #5 tab 10/19/19 Unknown Rx ED Review of Systems ROS: Stated complaint: SICKLE CELL PAIN Other details as noted in HPI Constitutional: denies: fever Respiratory: no symptoms reported Endocrine: no symptoms reported Gastrointestinal: constipation Musculoskeletal: myalgia. denies: back pain Hematological/Lymphatic: other (Sickle cell pain crisis) Physical Exam - Physical Exam Vital Signs: Vital Signs 10/28/19 10/28/19 03:29 06:28 Temperature 99.4 F Pulse Rate 110 H Respiratory 20 18 Rate Blood Pressure 146/99 O2 Sat by Pulse 95 Oximetry Physical Exam: GENERAL: The patient is well-developed well-nourished female lying on stretcher not appearing to be in acute distress. [] HEENT: Normocephalic. Atraumatic. Extraocular motions are intact. Patient has moist mucous membranes. NECK: Supple. Trachea midline CHEST/LUNGS: Clear to auscultation. There is no respiratory distress noted. HEART/CARDIOVASCULAR: Regular. There is no tachycardia. There is no gallop rub or murmur. ABDOMEN: Abdomen is soft, nontender. Patient has normal bowel sounds. There is no abdominal distention. SKIN: There is no rash. There is no edema. There is no diaphoresis. NEURO: The patient is awake, alert, and oriented. The patient is cooperative. The patient has normal speech MUSCULOSKELETAL: There is no evidence of acute injury. ED Course Vital Signs 10/28/19 10/28/19 03:29 06:28 Temperature 99.4 F Pulse Rate 110 H Respiratory 20 18 Rate Blood Pressure 146/99 O2 Sat by Pulse 95 Oximetry - Reevaluation(s) Reevaluation #1: 10/28/19 09:58 Patient states her pain is not improved status post 3 rounds of pain medication. Will admit the patient to the hospital for further management ED Medical Decision Making - Lab Data Result diagrams: 10/28/19 03:47 Laboratory Tests 10/28/19 03:47 WBC 13.2 H RBC 3.42 L Hgb 9.5 L Hct 29.9 L MCV 88 MCH 28 MCHC 32 RDW 33.2 H Plt Count 406 Add Manual Diff Complete Total Counted 100 Seg Neuts % (Manual) 65.0 Band Neutrophils % 0 Lymphocytes % (Manual) 23.0 Reactive Lymphs % (Man) 0 Monocytes % (Manual) 12.0 H Eosinophils % (Manual) 0 Basophils % (Manual) 0 Metamyelocytes % 0 Myelocytes % 0 Promyelocytes % 0 Blast Cells % 0 Nucleated RBC % 11.0 H Seg Neutrophils # Man 8.6 H Band Neutrophils # 0.0 Lymphocytes # (Manual) 3.0 Abs React Lymphs (Man) 0.0 Monocytes # (Manual) 1.6 H Eosinophils # (Manual) 0.0 Basophils # (Manual) 0.0 Metamyelocytes # 0.0 Myelocytes # 0.0 Promyelocytes # 0.0 Blast Cells # 0.0 WBC Morphology Not Reportable Hypersegmented Neuts Not Reportable Hyposegmented Neuts Not Reportable Hypogranular Neuts Not Reportable Smudge Cells Not Reportable Toxic Granulation Not Reportable Toxic Vacuolation Not Reportable Dohle Bodies Not Reportable Pelger-Huet Anomaly Not Reportable Adwoa Rods Not Reportable Platelet Estimate Consistent w auto Clumped Platelets Not Reportable Plt Clumps, EDTA Not Reportable Large Platelets Not Reportable Giant Platelets Not Reportable Platelet Satelliting Not Reportable Plt Morphology Comment Not Reportable RBC Morphology Not Reportable Dimorphic RBCs Not Reportable Polychromasia Rare Hypochromasia 1+ Poikilocytosis Not Reportable Anisocytosis 3+ Microcytosis Few Macrocytosis Not Reportable Spherocytes Not Reportable Pappenheimer Bodies Not Reportable Sickle Cells Few Target Cells 1+ Tear Drop Cells Rare Ovalocytes Rare Helmet Cells Not Reportable Brown-[place]lea Bodies Not Reportable [place] Rings Not Reportable Patria Cells Not Reportable Bite Cells Not Reportable Crenated Cell Not Reportable Elliptocytes Not Reportable Acanthocytes (Spur) Not Reportable Rouleaux Not Reportable Hemoglobin C Crystals Not Reportable Schistocytes Rare Malaria parasites Not Reportable Percent Retic 15.12 H Jose Luis Bodies Not Reportable Hem Pathologist Commnt No - Differential Diagnosis Sickle cell pain crisis Critical care attestation.: If time is entered above; I have spent that time in minutes in the direct care of this critically ill patient, excluding procedure time. ED Disposition Clinical Impression: Sickle cell pain crisis Disposition: DC-09 OP ADMIT IP TO THIS HOSP Is pt being admited?: Yes Does the pt Need Aspirin: No Condition: Fair Referrals: JOSE CALLEJAS MD [Primary Care Provider] - 3-5 Days Time of Disposition: 09:59 (Hospitalist paged)
[2019-10-28] MEDS: D5W/0.2% NACL 1,000 ML IV SCH ×2 (07:36→22:13)
[2019-10-28] MEDS ORDERED: diphenhydrAMINE 50 MG/ML VIAL IV ONE (07:37)
[2019-10-28] MEDS ORDERED: HYDROmorphone 1 MG/1 ML INJ IV ONE ×2 (07:49→09:05)
[2019-10-28] MEDS ORDERED: HYDROcodone/ACETAMINOPHEN 10-325MG TAB PO PRN (12:16)
[2019-10-28] MEDS ORDERED: ONDANSETRON 4 MG/2 ML INJ IV PRN (12:16)
[2019-10-28] MEDS ORDERED: MAGNESIUM HYDROXIDE (MOM) ORAL LIQD UDC PO PRN (12:16)
[2019-10-28] MEDS ORDERED: MINERAL OIL ENEMA 133 ML PR PRN (12:20)
[2019-10-28] MEDS ORDERED: KETOROLAC 60 MG/2 ML INJ IM ONE (12:22)
--- NOTE | 2019-10-28 12:42 | History and Physical Report ---
History of Present Illness Date of examination: 10/28/19 Date of admission: 10/28/19 10:00 Chief complaint: ssc History of present illness: Patient 24-year-old female presents 4-day history of acute pain crisis consistent with her typical sickle cell anemia crisis. Patient complains of pain from the hips pelvis radiating down to her legs. She did have some chest discomfort but not now. Patient attempted to treat herself with home medications and was unsuccessful. 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 So patient has prescriptions that she cannot feel. Patient goes to sickle cell center at [facility]. Really having an acute pain crisis secondary to inability to obtain pain meds. Patient states she typically takes 4 mg Dilaudid every 3 hours for pain control and takes Percocet 10 mg every 6 hours as needed in the home setting to control her pain along with hydroxyurea. At this time patient describes pain is 10 out of 10. Radiating down legs from back into calf hips. Shortness of breath but no chest pain. Past History Past Medical History: anemia. denies: acute KS, atrial fib, arrhythmia, arthritis, CAD, cancer, COPD, diabetes, DVT, ESRD, GERD, hepatitis, hyperthyroidism, liver disease, migraines, pulmonary embolism, stroke, sarcoidosis Past Surgical History: No surgical history Social history: no significant social history, single, lives with family, full code Family history: no significant family history Medications and Allergies Allergies Allergy/AdvReac Type Severity Reaction Status Date / Time ceftriaxone [From Rocephin] Allergy Anaphylaxis Verified 09/21/19 21:22 morphine Allergy Anaphylaxis Verified 10/28/19 07:58 peanut Allergy Anaphylaxis Verified 09/21/19 21:22 vancomycin Allergy Anaphylaxis Verified 09/21/19 21:22 Home Medications Medication Instructions Recorded Confirmed Last Taken Type Hydroxyurea [Hydrea] 1,500 mg PO DAILY 03/22/19 10/28/19 Unknown History Oxycodone HCl/Acetaminophen 1 each PO Q2H 03/22/19 10/28/19 Unknown History [Percocet 10/325 mg] Penicillin V Potassium 500 mg PO DAILY 03/22/19 03/22/19 Unknown History HYDROcodone/APAP 10-325 [Paoli 1 each PO Q4HR PRN #15 tablet 09/21/19 10/28/19 Unknown Rx 10/325] Azithromycin [Zithromax Z-GLENNY] 250 mg PO DAILY #6 tablet 10/19/19 Unknown Rx predniSONE [Deltasone] 20 mg PO QDAY #5 tab 10/19/19 Unknown Rx Active Meds: Active Medications Acetaminophen/Hydrocodone Bitart (Paoli ) 1 each PO Q4H PRN PRN Reason: Pain, Moderate (4-6) Amitriptyline HCl (Elavil) 25 mg PO QHS TEJAL Bisacodyl (Dulcolax) 10 mg AK QDAY PRN PRN Reason: Constipation unrelieved by MOM Diphenhydramine HCl (Benadryl) 25 mg IV Q6H PRN PRN Reason: Itching Enoxaparin Sodium (Enoxaparin) 40 mg SUB-Q QDAY TEJAL Folic Acid (Folvite) 1 mg PO QDAY [facility] Hydromorphone HCl (Dilaudid) 2 mg IV Q2H PRN PRN Reason: Pain , Severe (7-10) Stop: 10/29/19 12:15 Dextrose/Sodium Chloride (D5ns 0.2%) 1,000 mls @ 250 mls/hr IV DIRECT TEJAL Last Admin: 10/28/19 07:36 Dose: 250 mls/hr Documented by: Dextrose/Sodium Chloride (D5/0.45ns) 1,000 mls @ 150 mls/hr IV DIRECT TEJAL Stop: 10/28/19 19:39 Ketorolac Tromethamine (Toradol) 30 mg IM ONCE ONE Stop: 10/28/19 13:01 Magnesium Hydroxide (Milk Of Magnesia) 30 ml PO Q4H PRN PRN Reason: Constipation Mineral Oil (Fleet Mineral Oil) 133 ml AK ONCE PRN PRN Reason: Constipation Multivitamins (Theragran Tab) 1 each PO QDAY [facility] Ondansetron HCl (Zofran) 4 mg IV Q8H PRN PRN Reason: Nausea And Vomiting Senna (Senokot) 17.2 mg PO QHS [facility] Review of Systems Constitutional: anorexia, fatigue, weakness, malaise, chronic pain, no weight loss, no weight gain, no fever, no chills, no sweats, no night sweats, no lethargy, no chronic headaches, no poor appetite, no daytime sleepiness Ears, nose, mouth and throat: no nose pain, no sinus pressure, no sinus pain, no dental pain, no dysphagia, no sore throat, no swelling in throat, no vertigo, no pain front of neck, no other Cardiovascular: shortness of breath, no chest pain, no orthopnea, no palpitations, no rapid/irregular heart beat, no edema, no syncope, no lightheadedness, no dyspnea on exertion, no paroxysmal nocturnal dyspnea, no high blood pressure, no leg edema Respiratory: pain, no cough with sputum, no dyspnea on exertion, no wheezing, no pleurisy, no pain on inspiration, no sleep apnea, no home oxygen, no other Gastrointestinal: constipation, no diarrhea, no change in bowel habits, no BRBPR, no hematochezia, no loss of appetite, no early satiety, no heartburn Genitourinary Female: no dyspareunia, no dysmenorrhea, no flank pain, no urgency, no urge incontinence, no hematuria, no vaginal itching, no hot flashes, no prolapse symptoms Musculoskeletal: low back pain, shooting leg pain, leg numbness/tingling, morning stiffness, muscle weakness, myalgias, limitation of motion, gait dysfunction, no neck stiffness, no neck pain, no shooting arm pain, no arm numbness/tingling, no redness of joints, no hot joints, no arthritis Integumentary: no redness, no bullae, no darkening of skin, no acne, no dryness, no hirsutism, no foot/leg ulcers Neurological: no transient paralysis, no paralysis, no parathesias, no tingling, no seizures, no convulsions, no aphasia, no change in mentation, no sensory deficit, no double vision, no hearing difficulties Psychiatric: no anxiety, no memory loss, no hallucinations, no depression, no i rritability, no sadness/tearfullness, no mood swings Endocrine: no cold intolerance, no polyphagia, no polydipsia, no nocturia, no excessive sweating, no weight change, no increase in ring/shoe/hat size, no proptosis, no palpatations, no low blood sugars, no recent glucocorticoid use Hematologic/Lymphatic: no easy bruising, no easy bleeding, no lymphadenopathy, no lymphedema, no thrombophilia Allergic/Immunologic: no allergic rhinitis, no persistent infections, no anaphylaxis, no seasonal allergies Exam - Constitutional Vitals: Temp Pulse Resp BP Pulse Ox 99.4 F 110 H 18 146/99 95 10/28/19 03:29 10/28/19 03:29 10/28/19 09:37 10/28/19 03:29 10/28/19 03:29 General appearance: Present: no acute distress, well-nourished - EENT Eyes: Present: PERRL ENT: hearing intact, clear oral mucosa - Neck Neck: Present: supple, normal ROM - Respiratory Respiratory effort: normal Respiratory: bilateral: CTA - Cardiovascular Heart Sounds: Present: S1 & S2. Absent: rub, click - Extremities Extremities: pulses symmetrical, No edema Peripheral Pulses: within normal limits - Abdominal General gastrointestinal: Present: soft, non-tender, non-distended, normal bowel sounds Female genitourinary: Present: normal - Integumentary Integumentary: Present: clear, warm, dry - Musculoskeletal Musculoskeletal: gait normal, strength equal bilaterally - Psychiatric Psychiatric: appropriate mood/affect, intact judgment & insight - Neurologic Neurologic: CNII-XII intact, moves all extremities Results - Labs CBC & Chem 7: 10/28/19 03:47 Labs: Laboratory Last Values WBC 13.2 K/mm3 (4.5-11.0) H 10/28/19 03:47 RBC 3.42 M/mm3 (3.65-5.03) L 10/28/19 03:47 Hgb 9.5 gm/dl (10.1-14.3) L 10/28/19 03:47 Hct 29.9 % (30.3-42.9) L 10/28/19 03:47 MCV 88 fl (79-97) 10/28/19 03:47 MCH 28 pg (28-32) 10/28/19 03:47 MCHC 32 % (30-34) 10/28/19 03:47 RDW 33.2 % (13.2-15.2) H 10/28/19 03:47 Plt Count 406 K/mm3 (140-440) 10/28/19 03:47 Add Manual Diff Complete 10/28/19 03:47 Total Counted 100 10/28/19 03:47 Seg Neuts % (Manual) 65.0 % (40.0-70.0) 10/28/19 03:47 Band Neutrophils % 0 % 10/28/19 03:47 Lymphocytes % (Manual) 23.0 % (13.4-35.0) 10/28/19 03:47 Reactive Lymphs % (Man) 0 % 10/28/19 03:47 Monocytes % (Manual) 12.0 % (0.0-7.3) H 10/28/19 03:47 Eosinophils % (Manual) 0 % (0.0-4.3) 10/28/19 03:47 Basophils % (Manual) 0 % (0.0-1.8) 10/28/19 03:47 Metamyelocytes % 0 % 10/28/19 03:47 Myelocytes % 0 % 10/28/19 03:47 Promyelocytes % 0 % 10/28/19 03:47 Blast Cells % 0 % 10/28/19 03:47 Nucleated RBC % 11.0 % (0.0-0.9) H 10/28/19 03:47 Seg Neutrophils # Man 8.6 K/mm3 (1.8-7.7) H 10/28/19 03:47 Band Neutrophils # 0.0 K/mm3 10/28/19 03:47 Lymphocytes # (Manual) 3.0 K/mm3 (1.2-5.4) 10/28/19 03:47 Abs React Lymphs (Man) 0.0 K/mm3 10/28/19 03:47 Monocytes # (Manual) 1.6 K/mm3 (0.0-0.8) H 10/28/19 03:47 Eosinophils # (Manual) 0.0 K/mm3 (0.0-0.4) 10/28/19 03:47 Basophils # (Manual) 0.0 K/mm3 (0.0-0.1) 10/28/19 03:47 Metamyelocytes # 0.0 K/mm3 10/28/19 03:47 Myelocytes # 0.0 K/mm3 10/28/19 03:47 Promyelocytes # 0.0 K/mm3 10/28/19 03:47 Blast Cells # 0.0 K/mm3 10/28/19 03:47 WBC Morphology Not Reportable 10/28/19 03:47 Hypersegmented Neuts Not Reportable 10/28/19 03:47 Hyposegmented Neuts Not Reportable 10/28/19 03:47 Hypogranular Neuts Not Reportable 10/28/19 03:47 Smudge Cells Not Reportable 10/28/19 03:47 Toxic Granulation Not Reportable 10/28/19 03:47 Toxic Vacuolation Not Reportable 10/28/19 03:47 Dohle Bodies Not Reportable 10/28/19 03:47 Pelger-Huet Anomaly Not Reportable 10/28/19 03:47 Adwoa Rods Not Reportable 10/28/19 03:47 Platelet Estimate Consistent w auto 10/28/19 03:47 Clumped Platelets Not Reportable 10/28/19 03:47 Plt Clumps, EDTA Not Reportable 10/28/19 03:47 Large Platelets Not Reportable 10/28/19 03:47 Giant Platelets Not Reportable 10/28/19 03:47 Platelet Satelliting Not Reportable 10/28/19 03:47 Plt Morphology Comment Not Reportable 10/28/19 03:47 RBC Morphology Not Reportable 10/28/19 03:47 Dimorphic RBCs Not Reportable 10/28/19 03:47 Polychromasia Rare 10/28/19 03:47 Hypochromasia 1+ 10/28/19 03:47 Poikilocytosis Not Reportable 10/28/19 03:47 Anisocytosis 3+ 10/28/19 03:47 Microcytosis Few 10/28/19 03:47 Macrocytosis Not Reportable 10/28/19 03:47 Spherocytes Not Reportable 10/28/19 03:47 Pappenheimer Bodies Not Reportable 10/28/19 03:47 Sickle Cells Few 10/28/19 03:47 Target Cells 1+ 10/28/19 03:47 Tear Drop Cells Rare 10/28/19 03:47 Ovalocytes Rare 10/28/19 03:47 Helmet Cells Not Reportable 10/28/19 03:47 [place] Bodies Not Reportable 10/28/19 03:47 [place] Rings Not Reportable 10/28/19 03:47 [place] Cells Not Reportable 10/28/19 03:47 Bite Cells Not Reportable 10/28/19 03:47 Crenated Cell Not Reportable 10/28/19 03:47 Elliptocytes Not Reportable 10/28/19 03:47 Acanthocytes (Spur) Not Reportable 10/28/19 03:47 Rouleaux Not Reportable 10/28/19 03:47 Hemoglobin C Crystals Not Reportable 10/28/19 03:47 Schistocytes Rare 10/28/19 03:47 Malaria parasites Not Reportable 10/28/19 03:47 Percent Retic 15.12 % (0.78-2.58) H 10/28/19 03:47 Jose Luis Bodies Not Reportable 10/28/19 03:47 Hem Pathologist Commnt No 10/28/19 03:47 Simmons/IV: IV Catheter Type [Right Upper Peripheral IV arm] Assessment and Plan Advance Directives: Yes Plan of care discussed with patient/family: Yes - Patient Problems (1) Sickle cell anemia with crisis Current Visit: No Status: Acute Plan to address problem: Patient presents with her typical sickle cell anemia with pain crisis. Patient was not able to obtain her home medications and therefore had acute crisis. This is happened on more than one occasion. Patient has been educated to contact [facility] pharmacy so they can have her medications waiting for her. She could even use a outpatient pharmacy source such as [facility] versus cell phone. Can keep patient from having repeat hospitalizations. Will admit treat supportive care Dilaudid 2 mg IV every 2 as needed we will start patient on oral narcotics after 1 day and attempt to get patient discharged. Aggressive IV volume hydration supportive care with 175 normal saline per hour. Benadryl Zofran. Hydroxyurea (2) Constipation Current Visit: Yes Status: Acute Plan to address problem: Opioid-induced constipation. We will add MiraLAX and stool softeners as well as suppositories this point. Movantik should be evaluated upon discharge.
[2019-10-28] MEDS ORDERED: KETOROLAC 30 MG/1 ML INJ IM ONE (13:00)
[2019-10-28] MEDS ORDERED: D5W/0.45% NACL 1,000 ML IV SCH (13:00)
[2019-10-28] MEDS ORDERED: HYDROmorphone 2 MG/1 ML INJ ONE (13:17)
[2019-10-28] MEDS: HYDROmorphone 2 MG/1 ML INJ IV PRN ×5 (13:21→22:15)
[2019-10-28] MEDS ORDERED: FOLIC ACID 1 MG TAB ONE (13:28)
[2019-10-28] MEDS ORDERED: MULTIVITAMINS ,THERAPEUTIC TAB PO ONE (13:28)
[2019-10-28] MEDS ORDERED: KETOROLAC 30 MG/1 ML INJ ONE (13:28)
[2019-10-28] MEDS ORDERED: diphenhydrAMINE 50 MG/ML VIAL ONE (13:30)
[2019-10-28] MEDS: MULTIVITAMINS ,THERAPEUTIC TAB PO SCH (13:47)
[2019-10-28] MEDS: FOLIC ACID 1 MG TAB PO SCH (13:47)
[2019-10-28] MEDS: diphenhydrAMINE 50 MG/ML VIAL IV PRN (19:58)
[2019-10-28] MEDS ORDERED: ALBUTEROL 2.5 MG/3 ML NEBU IH PRN (20:32)
[2019-10-28] MEDS: AMITRIPTYLINE 25 MG TAB PO SCH (22:14)
[2019-10-28] MEDS: KETOROLAC 30 MG/1 ML INJ IV PRN (22:14)
[2019-10-28] MEDS: ALPRAZolam 1 MG TAB PO ONE ×2 (22:15→22:28)
[2019-10-28] MEDS: SENNOSIDES 8.6 MG TAB PO SCH (22:25)
[2019-10-29] MEDS: HYDROmorphone 2 MG/1 ML INJ IV PRN ×12 (00:15→22:54)
[2019-10-29] MEDS: KETOROLAC 30 MG/1 ML INJ IV PRN ×4 (02:14→16:59)
[2019-10-29] MEDS: diphenhydrAMINE 50 MG/ML VIAL IV PRN ×4 (02:15→20:47)
[2019-10-29] MEDS: D5W/0.2% NACL 1,000 ML IV SCH ×4 (04:15→20:48)
[2019-10-29] MEDS: predniSONE 20 MG TAB PO SCH (10:13)
[2019-10-29] MEDS: FOLIC ACID 1 MG TAB PO SCH (10:13)
[2019-10-29] MEDS: ENOXAPARIN 40 MG/0.4 ML INJ SUB-Q SCH (10:13)
[2019-10-29] MEDS: MULTIVITAMINS ,THERAPEUTIC TAB PO SCH (10:13)
[2019-10-29] MEDS ORDERED: ACETAMINOPHEN 325 MG TAB PO PRN (13:03)
[2019-10-29] MEDS ORDERED: ONDANSETRON 4 MG/2 ML INJ IV PRN (13:04)
--- NOTE | 2019-10-29 14:33 | Progress Note ---
Assessment and Plan - Patient Problems (1) Sickle cell anemia with crisis Current Visit: No Status: Acute Plan to address problem: Sickle cell anemia crisis. Improving. Will continue Dilaudid wean down as tolerated. Initiate oral medicine. Continue Benadryl Toradol as needed. When patient did get this regime she felt much better. Appears to have made a turnaround. Anticipating discharge in a.m. (2) Constipation Current Visit: Yes Status: Acute Plan to address problem: Opioid-induced constipation. At present we will give patient 2 suppositories every 6 hours as needed. We will add MiraLAX and stool softeners as well as suppositories this point. Movantik should be evaluated upon discharge. History Interval history: Patient feels better today. Suspect attempted discharge in a.m. Pain is gone f rom 10 out of 10 to 6 or 7 out of 10. Patient states pain was all the legs back and now is from hips and knees. So pain is improving. No fever no untoward events overnight. No shortness of breath no chest pain. Patient continues to have constipation. Failed initial suppository. Hospitalist Physical - Constitutional Vitals: Temp Pulse Resp BP Pulse Ox 98.4 F 77 18 120/63 95 10/29/19 05:41 10/29/19 09:42 10/29/19 09:42 10/29/19 05:41 10/29/19 05:41 General appearance: Present: no acute distress, well-nourished - EENT Eyes: Present: PERRL, EOM intact ENT: hearing intact, clear oral mucosa, dentition normal - Neck Neck: Present: supple, normal ROM - Respiratory Respiratory: bilateral: CTA - Cardiovascular Rhythm: regular - Extremities Extremities: no ischemia, pulses intact, pulses symmetrical Peripheral Pulses: within normal limits - Abdominal General gastrointestinal: soft, normal bowel sounds, other (Minimally tender slightly distended. Gas. But soft.) - Integumentary Integumentary: Present: clear, warm, dry, erythema - Psychiatric Psychiatric: appropriate mood/affect - Neurologic Neurologic: CNII-XII intact, no focal deficits, moves all extremities Results - Labs CBC & Chem 7: 10/28/19 03:47 Labs: Laboratory Last Values WBC 13.2 K/mm3 (4.5-11.0) H 10/28/19 03:47 RBC 3.42 M/mm3 (3.65-5.03) L 10/28/19 03:47 Hgb 9.5 gm/dl (10.1-14.3) L 10/28/19 03:47 Hct 29.9 % (30.3-42.9) L 10/28/19 03:47 MCV 88 fl (79-97) 10/28/19 03:47 MCH 28 pg (28-32) 10/28/19 03:47 MCHC 32 % (30-34) 10/28/19 03:47 RDW 33.2 % (13.2-15.2) H 10/28/19 03:47 Plt Count 406 K/mm3 (140-440) 10/28/19 03:47 Add Manual Diff Complete 10/28/19 03:47 Total Counted 100 10/28/19 03:47 Seg Neuts % (Manual) 65.0 % (40.0-70.0) 10/28/19 03:47 Band Neutrophils % 0 % 10/28/19 03:47 Lymphocytes % (Manual) 23.0 % (13.4-35.0) 10/28/19 03:47 Reactive Lymphs % (Man) 0 % 10/28/19 03:47 Monocytes % (Manual) 12.0 % (0.0-7.3) H 10/28/19 03:47 Eosinophils % (Manual) 0 % (0.0-4.3) 10/28/19 03:47 Basophils % (Manual) 0 % (0.0-1.8) 10/28/19 03:47 Metamyelocytes % 0 % 10/28/19 03:47 Myelocytes % 0 % 10/28/19 03:47 Promyelocytes % 0 % 10/28/19 03:47 Blast Cells % 0 % 10/28/19 03:47 Nucleated RBC % 11.0 % (0.0-0.9) H 10/28/19 03:47 Seg Neutrophils # Man 8.6 K/mm3 (1.8-7.7) H 10/28/19 03:47 Band Neutrophils # 0.0 K/mm3 10/28/19 03:47 Lymphocytes # (Manual) 3.0 K/mm3 (1.2-5.4) 10/28/19 03:47 Abs React Lymphs (Man) 0.0 K/mm3 10/28/19 03:47 Monocytes # (Manual) 1.6 K/mm3 (0.0-0.8) H 10/28/19 03:47 Eosinophils # (Manual) 0.0 K/mm3 (0.0-0.4) 10/28/19 03:47 Basophils # (Manual) 0.0 K/mm3 (0.0-0.1) 10/28/19 03:47 Metamyelocytes # 0.0 K/mm3 10/28/19 03:47 Myelocytes # 0.0 K/mm3 10/28/19 03:47 Promyelocytes # 0.0 K/mm3 10/28/19 03:47 Blast Cells # 0.0 K/mm3 10/28/19 03:47 WBC Morphology Not Reportable 10/28/19 03:47 Hypersegmented Neuts Not Reportable 10/28/19 03:47 Hyposegmented Neuts Not Reportable 10/28/19 03:47 Hypogranular Neuts Not Reportable 10/28/19 03:47 Smudge Cells Not Reportable 10/28/19 03:47 Toxic Granulation Not Reportable 10/28/19 03:47 Toxic Vacuolation Not Reportable 10/28/19 03:47 Dohle Bodies Not Reportable 10/28/19 03:47 Pelger-Huet Anomaly Not Reportable 10/28/19 03:47 Adwoa Rods Not Reportable 10/28/19 03:47 Platelet Estimate Consistent w auto 10/28/19 03:47 Clumped Platelets Not Reportable 10/28/19 03:47 Plt Clumps, EDTA Not Reportable 10/28/19 03:47 Large Platelets Not Reportable 10/28/19 03:47 Giant Platelets Not Reportable 10/28/19 03:47 Platelet Satelliting Not Reportable 10/28/19 03:47 Plt Morphology Comment Not Reportable 10/28/19 03:47 RBC Morphology Not Reportable 10/28/19 03:47 Dimorphic RBCs Not Reportable 10/28/19 03:47 Polychromasia Rare 10/28/19 03:47 Hypochromasia 1+ 10/28/19 03:47 Poikilocytosis Not Reportable 10/28/19 03:47 Anisocytosis 3+ 10/28/19 03:47 Microcytosis Few 10/28/19 03:47 Macrocytosis Not Reportable 10/28/19 03:47 Spherocytes Not Reportable 10/28/19 03:47 Pappenheimer Bodies Not Reportable 10/28/19 03:47 Sickle Cells Few 10/28/19 03:47 Target Cells 1+ 10/28/19 03:47 Tear Drop Cells Rare 10/28/19 03:47 Ovalocytes Rare 10/28/19 03:47 Helmet Cells Not Reportable 10/28/19 03:47 [place] Bodies Not Reportable 10/28/19 03:47 [place] Rings Not Reportable 10/28/19 03:47 [place] Cells Not Reportable 10/28/19 03:47 Bite Cells Not Reportable 10/28/19 03:47 Crenated Cell Not Reportable 10/28/19 03:47 Elliptocytes Not Reportable 10/28/19 03:47 Acanthocytes (Spur) Not Reportable 10/28/19 03:47 Rouleaux Not Reportable 10/28/19 03:47 Hemoglobin C Crystals Not Reportable 10/28/19 03:47 Schistocytes Rare 10/28/19 03:47 Malaria parasites Not Reportable 10/28/19 03:47 Percent Retic 15.12 % (0.78-2.58) H 10/28/19 03:47 Jose Luis Bodies Not Reportable 10/28/19 03:47 Hem Pathologist Commnt No 10/28/19 03:47 Simmons/IV: Voiding Method Toilet IV Catheter Type [Right Wrist] Peripheral IV IV Catheter Type [Right Upper Peripheral IV arm] Active Medications - Current Medications Current Medications: Generic Name Dose Route Start Last Admin Trade Name Freq PRN Reason Stop Dose Admin Acetaminophen 650 mg 10/29/19 13:03 Tylenol PO Q4H PRN Pain, Mild (1-3) Acetaminophen/Hydrocodone Bitart 1 each 10/28/19 12:16 [place] 10/325 PO Q4H PRN Pain, Moderate (4-6) Albuterol 2.5 mg 10/28/19 20:32 10/29/19 09:41 Proventil IH 2.5 mg QIDRT PRN Administration Shortness Of Breath Amitriptyline HCl 25 mg 10/28/19 22:00 10/28/19 22:14 Elavil PO 25 mg QHS TEJAL Administration Bisacodyl 10 mg 10/28/19 12:16 10/28/19 19:58 Dulcolax [place] 10 mg QDAY PRN Administration Constipation unrelieved by MOM Diphenhydramine HCl 25 mg 10/28/19 12:19 10/29/19 08:19 Benadryl IV 25 mg Q6H PRN Administration Itching Enoxaparin Sodium 40 mg 10/29/19 10:00 10/29/19 10:13 Enoxaparin SUB-Q 40 mg QDAY TEJAL Administration Folic Acid 1 mg 10/28/19 13:00 10/29/19 10:13 Folvite PO 1 mg QDAY TEJAL Administration Hydromorphone HCl 2 mg 10/29/19 13:05 Dilaudid IV Q2H PRN Pain , Severe (7-10) Hydroxyurea 1,500 mg 10/29/19 10:00 Hydroxyurea PO DAILY TEJAL Dextrose/Sodium Chloride 1,000 mls @ 250 mls/hr 10/28/19 07:00 10/29/19 08:35 D5ns 0.2% IV 250 mls/hr DIRECT TEJAL Administration Ketorolac Tromethamine 15 mg 10/28/19 20:28 10/29/19 10:13 Toradol IV 11/02/19 20:27 15 mg Q4H PRN Administration Pain, Mild (1-3) Magnesium Hydroxide 30 ml 10/28/19 12:16 10/29/19 10:13 Milk Of Magnesia PO 30 ml Q4H PRN Administration Constipation Mineral Oil 133 ml 10/28/19 12:20 [place] Mineral Oil [place] ONCE PRN Constipation Multivitamins 1 each 10/28/19 13:00 10/29/19 10:13 Theragran Tab PO 1 each QDAY TEJAL Administration Ondansetron HCl 4 mg 10/29/19 13:04 Zofran IV Q6H PRN N/V unrelieved by Reglan Prednisone 20 mg 10/29/19 10:00 10/29/19 10:13 Deltasone PO 20 mg QDAY TEJAL Administration Senna 17.2 mg 10/28/19 22:00 10/28/19 22:25 Senokot PO Not Given QHS TEJAL
[2019-10-29] MEDS: HYDROXYUREA 500 MG CAP PO SCH (14:54)
[2019-10-29] MEDS: AMITRIPTYLINE 25 MG TAB PO SCH (21:02)
[2019-10-29] MEDS: SENNOSIDES 8.6 MG TAB PO SCH (21:06)
[2019-10-30] MEDS: HYDROmorphone 2 MG/1 ML INJ IV PRN ×7 (00:56→13:33)
[2019-10-30] MEDS: D5W/0.2% NACL 1,000 ML IV SCH ×4 (02:06→13:39)
[2019-10-30] MEDS: diphenhydrAMINE 50 MG/ML VIAL IV PRN ×2 (03:02→09:18)
[2019-10-30 07:00] LABS: Hematocrit 23.4 % (30.3-42.9); Hemoglobin 7.3 gm/dl (10.1-14.3); Mean Corpuscular HGB Conc 31 % (30-34); Mean Corpuscular Volume 84 fl (79-97); Platelet Count 294 K/mm3 (140-440); Red Blood Count 2.79 M/mm3 (3.65-5.03)
[2019-10-30 07:07] LABS: BUN/Creatinine Ratio 10; Blood Urea Nitrogen 5 mg/dL (7-17); Calcium 8.6 mg/dL (8.4-10.2); Hemolysis Index 12
[2019-10-30 07:14] LABS: Red Cell Distribution Width 29.5 % (13.2-15.2)
--- NOTE | 2019-10-30 08:11 | Discharge Summary ---
Providers - Providers Date of Admission: 10/29/19 15:45 Date of discharge: 10/30/19 Attending physician: JANENE colin Primary care physician: JOSE CALLEJAS Hospitalization Condition: Fair Hospital course: Patient presented with typical sickle cell crisis. Brought in started on aggressive IV volume hydration. Dilaudid 2 mg every 2 hours as needed. Patient defervesced well was able to change to p.o. medications. Will discharge patient on hydroxyurea, folic acid and Percocet. Follow-up with [facility] 1 week. Disposition: DC-01 TO HOME OR SELFCARE - Discharge Diagnoses (1) Sickle cell anemia with crisis Status: Acute (2) Constipation Status: Acute Core Measure Documentation - Palliative Care Palliative Care/ Comfort Measures: Not Applicable - Core Measures Any of the following diagnoses?: none Exam - Constitutional Vitals: Temp Pulse Resp BP Pulse Ox 98.5 F 92 H 17 138/66 100 10/30/19 04:26 10/30/19 04:26 10/30/19 07:07 10/30/19 04:26 10/30/19 04:26 General appearance: Present: no acute distress, well-nourished - EENT Eyes: Present: PERRL ENT: hearing intact, clear oral mucosa - Neck Neck: Present: supple, normal ROM - Respiratory Respiratory effort: normal Respiratory: bilateral: CTA - Cardiovascular Heart Sounds: Present: S1 & S2. Absent: rub, click - Extremities Extremities: pulses symmetrical, No edema Peripheral Pulses: within normal limits - Abdominal General gastrointestinal: Present: soft, non-tender, non-distended, normal bowel sounds Female genitourinary: Present: normal - Integumentary Integumentary: Present: clear, warm, dry - Musculoskeletal Musculoskeletal: gait normal, strength equal bilaterally - Psychiatric Psychiatric: appropriate mood/affect, intact judgment & insight - Neurologic Neurologic: CNII-XII intact, moves all extremities Plan Activity: no restrictions Weight Bearing Status: Full Weight Bearing Diet: regular Follow up with: JOSE CALLEJAS MD [Primary Care Provider] - 3-5 Days Prescriptions: oxyCODONE /ACETAMINOPHEN [Percocet 5/325 mg] 1 tab PO Q6H PRN #60 tablet PRN Reason: Pain, Moderate (4-6)
[2019-10-30 08:36] LABS: Basophils % (Manual) 0 % (0.0-1.8); Total Cells Counted 100
[2019-10-30 08:37] LABS: Anisocytosis 3+; Poikilocytosis 2+; Sickle Cells Rare; Target Cells 1+
[2019-10-30 08:38] LABS: Tear Drop Cells Rare
[2019-10-30 08:39] LABS: Ovalocytes Rare; Platelet Estimate Consistent w Auto
[2019-10-30] MEDS: FOLIC ACID 1 MG TAB PO SCH (09:18)
[2019-10-30] MEDS: MULTIVITAMINS ,THERAPEUTIC TAB PO SCH (09:18)
[2019-10-30] MEDS: predniSONE 20 MG TAB PO SCH (09:19)
[2019-10-30] MEDS: HYDROXYUREA 500 MG CAP PO SCH (09:19)
[2019-10-30] MEDS: ENOXAPARIN 40 MG/0.4 ML INJ SUB-Q SCH (09:19)
[2019-10-30 11:29] VITALS: BP 119/63
[2019-10-30] MEDS ORDERED: oxyCODONE /ACETAMINOPHEN 5-325MG TAB PO PRN (14:19)
== END 2019-10-30 14:48 | disposition home or self-care (01) | DRG 812 ==
LOC: ED 03:25 → 3A 10:00 → OBSVTOIN 10-29 15:45
PROVIDERS: ADMIT Internal Medicine; ATTEND Internal Medicine
DX: D57.00 Hb-SS disease with crisis, unspecified (principal); K59.03 Drug induced constipation; T40.2X5A Adverse effect of other opioids, initial encounter; J45.909 Unspecified asthma, uncomplicated; K31.9 Disease of stomach and duodenum, unspecified; Z88.1 Allergy status to other antibiotic agents; Z88.5 Allergy status to narcotic agent; Z91.010 Allergy to peanuts; Z79.899 Other long term (current) drug therapy; Y92.89 Other specified places as the place of occurrence of the external cause; Z90.49 Acquired absence of other specified parts of digestive tract; Z90.81 Acquired absence of spleen; Z72.89 Other problems related to lifestyle
CPT/HCPCS: 36415; 80048; 85007; 85025; 85045; 94640; G0378; J1170; J1200; J1650; J1885; J2405; J3010; J7512

== ENCOUNTER 2019-12-03 15:53 | Emergency (ER) | payer MEDICAID | END 2019-12-03 20:05 | disposition left against medical advice (07) | LOC: ED 15:53 | DX: D57.1 Sickle-cell disease without crisis (principal); Z53.21 Procedure and treatment not carried out due to patient leaving prior to being seen by health care provider ==

== ENCOUNTER 2020-01-05 16:10 | Inpatient (IN) | payer MEDICAID ==
[2020-01-05 16:36] LABS: Hematocrit 30.6 % (30.3-42.9); Hemoglobin 10.7 gm/dl (10.1-14.3); Mean Corpuscular HGB Conc 35 % (30-34); Mean Corpuscular Volume 83 fl (79-97); Platelet Count 383 K/mm3 (140-440); Red Blood Count 3.67 M/mm3 (3.65-5.03)
[2020-01-05 16:37] LABS: Red Cell Distribution Width 22.9 % (13.2-15.2)
[2020-01-05 17:02] LABS: Alanine Aminotransferase 28 units/L (7-56); Blood Urea Nitrogen 5 mg/dL (7-17); Calcium 9.9 mg/dL (8.4-10.2); Hemolysis Index 16
[2020-01-05 17:06] LABS: BUN/Creatinine Ratio 10
[2020-01-05 17:15] LABS: Anisocytosis 2+; Poikilocytosis 2+; Total Cells Counted 100
[2020-01-05 17:16] LABS: Ovalocytes Rare; Sickle Cells Few; Target Cells 1+; Tear Drop Cells Rare
[2020-01-05] MEDS ORDERED: HYDROmorphone 2 MG/1 ML INJ ONE (20:34)
[2020-01-05] MEDS ORDERED: diphenhydrAMINE 50 MG/ML VIAL ONE (20:37)
[2020-01-05] MEDS ORDERED: SODIUM CHLORIDE 0.9% 1000 ML 2,000 ML ONE (20:37)
[2020-01-05] MEDS ORDERED: ONDANSETRON 4 MG/2 ML INJ ONE (20:37)
[2020-01-05] MEDS ORDERED: diphenhydrAMINE 50 MG/ML VIAL IV ONE ×2 (20:39→22:48)
[2020-01-05] MEDS ORDERED: ONDANSETRON 4 MG/2 ML INJ IV ONE (20:39)
[2020-01-05] MEDS ORDERED: HYDROmorphone 2 MG/1 ML INJ IV ONE ×4 (20:39→22:48)
[2020-01-05] MEDS ORDERED: SODIUM CHLORIDE 0.9% 1000 ML 1,000 ML IV ONE ×2 (20:40→20:49)
--- NOTE | 2020-01-05 20:41 | Emergency Department Report ---
ED General Adult HPI - General Chief complaint: Sickle Cell Crisis Stated complaint: SICKLE CELL CRISIS PUI?: No Time Seen by Provider: 01/05/20 20:31 Source: patient Mode of arrival: Ambulatory Limitations: No Limitations - History of Present Illness Initial comments: Patient is a 24-year-old female that presents emergency room with complaints of bilateral lower extremity pain. Patient states she feels like she is having a s ickle cell crisis. Patient dates her pain started a week ago. Patient states she been taking her oxycodone 10/325 with minimal relief. Patient states that she is compliant with her other sickle cell medications. Patient denies chest pain or shortness of breath. Patient denies fever chills. Patient states the pain is a 10 out of 10. Patient states the pain is worse with movement and better with rest. Patient denies other physical complaints. Patient denies recent travel. Patient denies recent international travel. Patient denies exposure to the novel coronavirus. Patient denies sick contacts. Patient denies fever and chills. Patient denies cough. Patient denies diarrhea. Patient denies coming in contact with anybody with symptoms of the novel coronavirus. -: Sudden - Related Data Home Medications Medication Instructions Recorded Confirmed Last Taken Hydroxyurea 1,500 mg PO DAILY 03/22/19 10/28/19 Unknown Oxycodone HCl/Acetaminophen 1 each PO Q2H 03/22/19 10/28/19 Unknown [Percocet 10/325 mg] Penicillin V Potassium 500 mg PO DAILY 03/22/19 10/30/19 Unknown Previous Rx's Medication Instructions Recorded Last Taken Type predniSONE [Deltasone] 20 mg PO QDAY #5 tab 10/19/19 Unknown Rx ALBUTEROL NEB's [Proventil 0.083% 2.5 mg IH QIDRT PRN nebu 10/30/19 Unknown Rx NEBS] Acetaminophen [Acetaminophen TAB] 650 mg PO Q4H PRN tablet 10/30/19 Unknown Rx Enoxaparin 40 mg SUB-Q QDAY syringe 10/30/19 Unknown Rx Folic Acid [Folvite] 1 mg PO QDAY tablet 10/30/19 Unknown Rx Magnesium Hydroxide [Milk of 30 ml PO Q4H PRN oral.liqd 10/30/19 Unknown Rx Magnesia] Mineral Oil [Fleet Mineral Oil] 133 ml [place] ONCE PRN bottle 10/30/19 Unknown Rx Multivitamin Tab [Multiple Vitamin 1 each PO QDAY tablet 10/30/19 Unknown Rx TAB (Theragran)] bisacodyL [Dulcolax suppos] 10 mg [place] QDAY PRN supp.rect 10/30/19 Unknown Rx diphenhydrAMINE [Benadryl] 25 mg IV Q6H PRN vial 10/30/19 Unknown Rx oxyCODONE /ACETAMINOPHEN [Percocet 1 tab PO Q6H PRN #60 tablet 10/30/19 Unknown Rx 5/325 mg] Allergies Allergy/AdvReac Type Severity Reaction Status Date / Time ceftriaxone [From Rocephin] Allergy Anaphylaxis Verified 09/21/19 21:22 morphine Allergy Anaphylaxis Verified 10/28/19 07:58 peanut Allergy Anaphylaxis Verified 09/21/19 21:22 vancomycin Allergy Anaphylaxis Verified 09/21/19 21:22 ED Review of Systems ROS: Stated complaint: SICKLE CELL CRISIS Other details as noted in HPI Constitutional: denies: chills, fever Eyes: denies: eye pain, eye discharge, vision change ENT: denies: ear pain, throat pain Respiratory: denies: cough, shortness of breath, wheezing Cardiovascular: denies: chest pain, palpitations Endocrine: no symptoms reported Gastrointestinal: denies: abdominal pain, nausea, diarrhea Genitourinary: denies: urgency, dysuria, discharge Musculoskeletal: denies: back pain, joint swelling, arthralgia Skin: denies: rash, lesions Neurological: denies: headache, weakness, paresthesias Psychiatric: denies: anxiety, depression Hematological/Lymphatic: denies: easy bleeding, easy bruising ED Past Medical Hx - Past Medical History Previous Medical History?: Yes Hx Diabetes: No Hx Sickle Cell Disease: Yes Hx Asthma: Yes Hx COPD: No Additional medical history: scoliosis, blood clot in right arm - Surgical History Past Surgical History?: Yes Hx Cholecystectomy: Yes Additional Surgical History: Splenectomy, tonsilectomy - Social History Smoking Status: Never Smoker Substance Use Type: None - Medications Home Medications: Home Medications Medication Instructions Recorded Confirmed Last Taken Type Hydroxyurea 1,500 mg PO DAILY 03/22/19 10/28/19 Unknown History Oxycodone HCl/Acetaminophen 1 each PO Q2H 03/22/19 10/28/19 Unknown History [Percocet 10/325 mg] Penicillin V Potassium 500 mg PO DAILY 03/22/19 10/30/19 Unknown History predniSONE [Deltasone] 20 mg PO QDAY #5 tab 10/19/19 10/30/19 Unknown Rx ALBUTEROL NEB's [Proventil 0.083% 2.5 mg IH QIDRT PRN nebu 10/30/19 Unknown Rx NEBS] Acetaminophen [Acetaminophen TAB] 650 mg PO Q4H PRN tablet 10/30/19 Unknown Rx Enoxaparin 40 mg SUB-Q QDAY syringe 10/30/19 Unknown Rx Folic Acid [Folvite] 1 mg PO QDAY tablet 10/30/19 Unknown Rx Magnesium Hydroxide [Milk of 30 ml PO Q4H PRN oral.liqd 10/30/19 Unknown Rx Magnesia] Mineral Oil [Fleet Mineral Oil] 133 ml [place] ONCE PRN bottle 10/30/19 Unknown Rx Multivitamin Tab [Multiple Vitamin 1 each PO QDAY tablet 10/30/19 Unknown Rx TAB (Theragran)] bisacodyL [Dulcolax suppos] 10 mg [place] QDAY PRN supp.rect 10/30/19 Unknown Rx diphenhydrAMINE [Benadryl] 25 mg IV Q6H PRN vial 10/30/19 Unknown Rx oxyCODONE /ACETAMINOPHEN [Percocet 1 tab PO Q6H PRN #60 tablet 10/30/19 Unknown Rx 5/325 mg] ED Physical Exam - General Limitations: No Limitations General appearance: alert, in no apparent distress - Head Head exam: Present: atraumatic, normocephalic - Eye Eye exam: Present: normal appearance - ENT ENT exam: Present: mucous membranes moist - Neck Neck exam: Present: normal inspection - Respiratory Respiratory exam: Present: normal lung sounds bilaterally. Absent: respiratory distress - Cardiovascular Cardiovascular Exam: Present: regular rate, normal rhythm. Absent: systolic murmur, diastolic murmur, rubs, gallop - GI/Abdominal GI/Abdominal exam: Present: soft, normal bowel sounds - Extremities Exam Extremities exam: Present: normal inspection - Back Exam Back exam: Present: normal inspection - Neurological Exam Neurological exam: Present: alert, oriented X3 - Psychiatric Psychiatric exam: Present: normal affect, normal mood - Skin Skin exam: Present: warm, dry, intact, normal color. Absent: rash ED Course Vital Signs 01/05/20 01/05/20 01/05/20 16:18 20:41 20:42 Temperature 98.3 F Pulse Rate 110 H 100 H Respiratory 16 18 18 Rate Blood Pressure 146/58 Blood Pressure 137/72 [Left] O2 Sat by Pulse 97 96 Oximetry 01/05/20 01/06/20 01/06/20 23:17 01:56 03:34 Temperature Pulse Rate 98 H 88 81 Respiratory 17 18 16 Rate Blood Pressure Blood Pressure 142/62 116/60 124/70 [Left] O2 Sat by Pulse 97 98 98 Oximetry - Reevaluation(s) Reevaluation #1: Initial valuation done. Nurses unable to obtain a peripheral line. Right neck EJ placed. See procedure note. 01/05/20 20:39 Reevaluation #2: Patient still complaining of severe pain. Patient states her pain is a 10 out of 10. Patient is already had 4 mg of Dilaudid. Patient is also complaining of anxiety. Patient will be given Dilaudid and Ativan. 01/05/20 22:25 Reevaluation #3: Patient is crying. Patient states she is in severe pain. Patient was given another 2 mg of Dilaudid. Patient also complaining of itching. Patient will be given Benadryl and fentanyl. We will change from Dilaudid to fentanyl. 01/05/20 22:50 Reevaluation #4: I discussed all results with patient. I discussed plan of care with patient. Patient agrees with plan of care and admission. Patient to be admitted to the hospitalist service. 01/05/20 23:11 Reevaluation #5: Patient complaining of a panic attack. Patient will be given Haldol. 01/05/20 23:25 - Consultations Consultation #1: Hospitalist consulted for admission. Hospitalist to admit patient. 01/05/20 22:51 - EJ/Peripheral Line Neck R Time Out Performed: Yes Indications: nurses unable to establis Skin Cleansed in Sterile Fashion: Yes Size: 20 Dressing Placed: Tegaderm, tape Patient Tolerated Procedure: well, no complications ED Medical Decision Making - Lab Data Result diagrams: 01/05/20 16:29 01/05/20 16:29 - Medical Decision Making Patient is a 24-year-old female who presents emergency room with complaints of leg pain and sickle cell crisis. Patient for to count was elevated. Patient's labs are essentially unremarkable except for her reticulocyte count and elevated WBC and elevated bilirubin. Patient's was given multiple doses of Dilaudid and I was not able to control or decrease the patient's pain. Patient will be admitted to the hospitalist service for further evaluation treatment. - Differential Diagnosis Leg pain, intractable pain, sickle cell crisis. Critical Care Time: Yes Critical care time in (mins) excluding proc time.: 35 Critical care attestation.: If time is entered above; I have spent that time in minutes in the direct care of this critically ill patient, excluding procedure time. Critical Care Time: 35 minutes ED Disposition Clinical Impression: Sickle cell pain crisis, Intractable pain, Anxiety Disposition: OP ADMIT IP TO THIS HOSP Is pt being admited?: Yes Does the pt Need Aspirin: No Condition: Critical Time of Disposition: 22:50
[2020-01-05] MEDS ORDERED: LORazepam 2 MG/ML VIAL IV ONE (22:24)
[2020-01-05] MEDS ORDERED: fentaNYL 100 MCG/2 ML INJ IV ONE (22:54)
[2020-01-05] MEDS ORDERED: HALOPERIDOL LACTATE 5 MG/1 ML INJ IM ONE ×2 (23:24)
[2020-01-06] MEDS ORDERED: diphenhydrAMINE 50 MG/ML VIAL IV PRN (00:22)
[2020-01-06] MEDS ORDERED: ACETAMINOPHEN 325 MG TAB PO PRN ×2 (00:22→08:00)
[2020-01-06] MEDS ORDERED: MAGNESIUM HYDROXIDE (MOM) ORAL LIQD UDC PO PRN (00:22)
--- NOTE | 2020-01-06 00:32 | History and Physical Report ---
History of Present Illness Date of examination: 01/06/20 Date of admission: 01/06/20 23:23 Chief complaint: Bilateral lower Extremity pain History of present illness: 24-year-old -[place] female with known history of sickle cell disease presenting to the emergency room today complaining of bilateral lower extremity pain which started about a week ago. Patient states she has been taking pain medication oxycodone 10/325 mg without any significant improvement. She also has been compliant with all the medications for sickle cell disease. She denies any fever or chills, no chest pain or shortness of breath, no nausea vomiting, no abdominal pain, no diarrhea, no headache or dizziness. No extremity pain is worse upon movement and improves when resting. She denies any sick contacts and no recent travel. She denies contact with anyone with COVID-19. She was started on IV fluid and analgesic medication in the emergency room. Past History Past Medical History: other (Asthma,Sickle cell disease,Scoliosis,H/O blood clot in right upper extremity.) Past Surgical History: cholecystectomy, tonsillectomy, Other (Splenectomy) Social history: no significant social history Family history: no significant family history Medications and Allergies Allergies Allergy/AdvReac Type Severity Reaction Status Date / Time ceftriaxone [From Rocephin] Allergy Anaphylaxis Verified 09/21/19 21:22 morphine Allergy Anaphylaxis Verified 10/28/19 07:58 peanut Allergy Anaphylaxis Verified 09/21/19 21:22 vancomycin Allergy Anaphylaxis Verified 09/21/19 21:22 Home Medications Medication Instructions Recorded Confirmed Last Taken Type Hydroxyurea 1,500 mg PO DAILY 03/22/19 10/28/19 Unknown History Oxycodone HCl/Acetaminophen 1 each PO Q2H 03/22/19 10/28/19 Unknown History [Percocet 10/325 mg] Penicillin V Potassium 500 mg PO DAILY 03/22/19 10/30/19 Unknown History predniSONE [Deltasone] 20 mg PO QDAY #5 tab 10/19/19 10/30/19 Unknown Rx ALBUTEROL NEB's [Proventil 0.083% 2.5 mg IH QIDRT PRN nebu 10/30/19 Unknown Rx NEBS] Acetaminophen [Acetaminophen TAB] 650 mg PO Q4H PRN tablet 10/30/19 Unknown Rx Enoxaparin 40 mg SUB-Q QDAY syringe 10/30/19 Unknown Rx Folic Acid [Folvite] 1 mg PO QDAY tablet 10/30/19 Unknown Rx Magnesium Hydroxide [Milk of 30 ml PO Q4H PRN oral.liqd 10/30/19 Unknown Rx Magnesia] Mineral Oil [Fleet Mineral Oil] 133 ml [place] ONCE PRN bottle 10/30/19 Unknown Rx Multivitamin Tab [Multiple Vitamin 1 each PO QDAY tablet 10/30/19 Unknown Rx TAB (Theragran)] bisacodyL [Dulcolax suppos] 10 mg [place] QDAY PRN supp.rect 10/30/19 Unknown Rx diphenhydrAMINE [Benadryl] 25 mg IV Q6H PRN vial 10/30/19 Unknown Rx oxyCODONE /ACETAMINOPHEN [Percocet 1 tab PO Q6H PRN #60 tablet 10/30/19 Unknown Rx 5/325 mg] Active Meds: Active Medications Acetaminophen (Tylenol) 650 mg PO Q4H PRN PRN Reason: Pain MILD(1-3)/Fever >100.5/FUNES Bisacodyl (Dulcolax) 10 mg [place] QDAY PRN PRN Reason: Constipation unrelieved by MOM Diphenhydramine HCl (Benadryl) 25 mg IV Q6H PRN PRN Reason: Itching Enoxaparin Sodium (Enoxaparin) 40 mg SUB-Q QDAY@2200 TEJAL Folic Acid (Folvite) 1 mg PO QDAY TEJAL Hydromorphone HCl (Dilaudid) 2 mg IV Q2H PRN PRN Reason: Pain , Severe (7-10) Stop: 01/07/20 00:21 Dextrose/Sodium Chloride (D5/0.45ns) 1,000 mls @ 150 mls/hr IV DIRECT TEJAL Stop: 01/06/20 07:39 Magnesium Hydroxide (Milk Of Magnesia) 30 ml PO Q4H PRN PRN Reason: Constipation Multivitamins (Theragran Tab) 1 each PO QDAY TEJAL Ondansetron HCl (Zofran) 4 mg IV Q8H PRN PRN Reason: Nausea And Vomiting Senna (Senokot) 17.2 mg PO QHS TEJAL Sodium Chloride (Sodium Chloride Flush Syringe 10 Ml) 10 ml IV BID TEJAL Sodium Chloride (Sodium Chloride Flush Syringe 10 Ml) 10 ml IV PRN PRN PRN Reason: LINE FLUSH Review of Systems Constitutional: no fever, no chills, no fatigue Cardiovascular: no chest pain, no palpitations Respiratory: no cough, no shortness of breath Gastrointestinal: no abdominal pain, no nausea, no vomiting, no diarrhea Genitourinary Female: no pelvic pain, no flank pain, no dysuria, no hematuria Musculoskeletal: low back pain, other (Lower extremity pain), no neck pain Integumentary: pruritis, no rash Neurological: no headaches, no confusion Psychiatric: no anxiety, no depression Exam - Constitutional Vitals: Temp Pulse Resp BP Pulse Ox 98.3 F 98 H 17 142/62 97 01/05/20 16:18 01/05/20 23:17 01/05/20 23:17 01/05/20 23:17 01/05/20 23:17 General appearance: Present: no acute distress, mild distress, well-nourished - EENT Eyes: Present: PERRL, EOM intact. Absent: scleral icterus ENT: hearing intact, clear oral mucosa, dentition normal - Neck Neck: Present: supple - Respiratory Respiratory effort: normal Respiratory: bilateral: CTA - Cardiovascular Rhythm: regular Heart Sounds: Present: S1 & S2. Absent: gallop, systolic murmur, diastolic murmur, rub - Extremities Extremities: no ischemia, pulses intact, pulses symmetrical, No edema, Full ROM Peripheral Pulses: within normal limits - Abdominal General gastrointestinal: Present: soft, non-tender, non-distended, normal bowel sounds. Absent: mass - Integumentary Integumentary: Present: clear, warm, dry. Absent: rash - Musculoskeletal Musculoskeletal: strength equal bilaterally - Psychiatric Psychiatric: appropriate mood/affect, intact judgment & insight, memory intact, cooperative - Neurologic Neurologic: CNII-XII intact, no focal deficits, moves all extremities Results - Labs CBC & Chem 7: 01/05/20 16:29 01/05/20 16:29 Labs: Abnormal lab results 01/05/20 01/05/20 Range/Units 16:29 16:29 WBC 16.7 H (4.5-11.0) K/mm3 MCHC 35 H (30-34) % RDW 22.9 H (13.2-15.2) % Basophils % (Manual) 2.0 H (0.0-1.8) % Seg Neutrophils # Man 9.5 H (1.8-7.7) K/mm3 Lymphocytes # (Manual) 5.7 H (1.2-5.4) K/mm3 Basophils # (Manual) 0.3 H (0.0-0.1) K/mm3 Percent Retic 8.02 H (0.78-2.58) % BUN 5 L (7-17) mg/dL Creatinine 0.5 L (0.6-1.2) mg/dL Total Bilirubin 1.60 H (0.1-1.2) mg/dL Assessment and Plan - Patient Problems (1) Sickle cell pain crisis Current Visit: Yes Status: Acute Plan to address problem: Patient admitted on and placed on IV fluid and analgesic medication. Will monitor CBC including reticulocyte counts. (2) DVT prophylaxis Current Visit: Yes Status: Acute Plan to address problem: Patient placed on subcutaneous Lovenox. (3) Full code status Current Visit: Yes Status: Acute
[2020-01-06] MEDS ORDERED: D5W/0.45% NACL 1,000 ML IV SCH (01:00)
[2020-01-06] MEDS ORDERED: HALOPERIDOL LACTATE 5 MG/1 ML INJ ONE (01:35)
[2020-01-06] MEDS ORDERED: HYDROmorphone 2 MG/1 ML INJ ONE ×6 (03:31→19:35)
[2020-01-06] MEDS: HYDROmorphone 2 MG/1 ML INJ IV PRN ×7 (03:31→21:59)
[2020-01-06] MEDS ORDERED: D5W/0.45% NACL 1,000 ML IV ONE (03:58)
[2020-01-06] MEDS: ONDANSETRON 4 MG/2 ML INJ IV PRN ×3 (07:50→22:27)
[2020-01-06] MEDS ORDERED: MINERAL OIL ENEMA 133 ML PR PRN (07:54)
[2020-01-06] MEDS ORDERED: diphenhydrAMINE 50 MG/ML VIAL ONE ×2 (07:59→13:18)
[2020-01-06] MEDS ORDERED: ONDANSETRON 4 MG/2 ML INJ ONE ×2 (07:59→16:53)
[2020-01-06] MEDS ORDERED: ALBUTEROL 2.5 MG/3 ML NEBU IH PRN (08:00)
--- NOTE | 2020-01-06 08:10 | Progress Note ---
Assessment and Plan Assessment and plan: 24-year-old -[place] Citizen female with known history of sickle cell disease presenting to the emergency room today complaining of bilateral lower extremity pain which started about a week ago. Patient states she has been taking pain medication oxycodone 10/325 mg without any significant improvement. She also has been compliant with all the medications for sickle cell disease. She denies any fever or chills, no chest pain or shortness of breath, no nausea vomiting, no abdominal pain, no diarrhea, no headache or dizziness. No extremity pain is worse upon movement and improves when resting. She denies any sick contacts and no recent travel. She denies contact with anyone with COVID-19. Patient reports she has pain meds at home, she has a port scheduled for monday 01/08. 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 Plan of care discussed with the patient and staff DVT/GI prophy History Interval history: Admitted with Bilateral lower ext x 1 week now spreading. Patient seen and examined still with severe distress Secondary to pain. No associated nausea and vomiting. Pain is 10/10 at the time of my visit. Hospitalist Physical - Constitutional Vitals: Temp Pulse Resp BP Pulse Ox 98.3 F 81 16 124/70 98 01/05/20 16:18 01/06/20 03:34 01/06/20 03:34 01/06/20 03:34 01/06/20 03:34 General appearance: Present: no acute distress, mild distress, well-nourished, obese - EENT Eyes: Present: EOM intact - Neck Neck: Present: supple, normal ROM - Respiratory Respiratory effort: normal Respiratory: bilateral: CTA - Cardiovascular Rhythm: regular Heart Sounds: Present: S1 & S2. Absent: systolic murmur, diastolic murmur - Extremities Extremities: no ischemia, pulses intact, No edema, Full ROM Peripheral Pulses: within normal limits - Abdominal General gastrointestinal: soft, non-tender, non-distended, normal bowel sounds - Integumentary Integumentary: Present: warm (SOME RASH EXISIT) - Psychiatric Psychiatric: intact judgment & insight, cooperative, other (ANXIOUS) - Neurologic Neurologic: CNII-XII intact, moves all extremities - Allied Health Allied health notes reviewed: nursing Results - Labs CBC & Chem 7: 01/05/20 16:29 01/05/20 16:29 Labs: Laboratory Last Values WBC 16.7 K/mm3 (4.5-11.0) H 01/05/20 16:29 RBC 3.67 M/mm3 (3.65-5.03) 01/05/20 16:29 Hgb 10.7 gm/dl (10.1-14.3) 01/05/20 16:29 Hct 30.6 % (30.3-42.9) 01/05/20 16: MCV 83 fl (79-97) 01/05/20 16: MCH 29 pg (28-32) 01/05/20 16: MCHC 35 % (30-34) H 01/05/20 16:29 RDW 22.9 % (13.2-15.2) H 01/05/20 16:29 Plt Count 383 K/mm3 (140-440) 01/05/20 16:29 Lymph # Construction Representative 01/05/20 16:29 Add Manual Diff Complete 01/05/20 16:29 Total Counted 100 01/05/20 16:29 Seg Neuts % (Manual) 57.0 % (40.0-70.0) 01/05/20 16:29 Band Neutrophils % 0 % 01/05/20 16:29 Lymphocytes % (Manual) 34.0 % (13.4-35.0) 01/05/20 16:29 Reactive Lymphs % (Man) 0 % 01/05/20 16:29 Monocytes % (Manual) 5.0 % (0.0-7.3) 01/05/20 16:29 Eosinophils % (Manual) 2.0 % (0.0-4.3) 01/05/20 16:29 Basophils % (Manual) 2.0 % (0.0-1.8) H 01/05/20 16:29 Metamyelocytes % 0 % 01/05/20 16:29 Myelocytes % 0 % 01/05/20 16:29 Promyelocytes % 0 % 01/05/20 16:29 Blast Cells % 0 % 01/05/20 16:29 Nucleated RBC % Not Reportable 01/05/20 16:29 Seg Neutrophils # Man 9.5 K/mm3 (1.8-7.7) H 01/05/20 16:29 Band Neutrophils # 0.0 K/mm3 01/05/20 16:29 Lymphocytes # (Manual) 5.7 K/mm3 (1.2-5.4) H 01/05/20 16:29 Abs React Lymphs (Man) 0.0 K/mm3 01/05/20 16:29 Monocytes # (Manual) 0.8 K/mm3 (0.0-0.8) 01/05/20 16:29 Eosinophils # (Manual) 0.3 K/mm3 (0.0-0.4) 01/05/20 16:29 Basophils # (Manual) 0.3 K/mm3 (0.0-0.1) H 01/05/20 16:29 Metamyelocytes # 0.0 K/mm3 01/05/20 16:29 Myelocytes # 0.0 K/mm3 01/05/20 16:29 Promyelocytes # 0.0 K/mm3 01/05/20 16:29 Blast Cells # 0.0 K/mm3 01/05/20 16:29 WBC Morphology Not Reportable 01/05/20 16:29 Hypersegmented Neuts Not Reportable 01/05/20 16:29 Hyposegmented Neuts Not Reportable 01/05/20 16:29 Hypogranular Neuts Not Reportable 01/05/20 16:29 Smudge Cells Not Reportable 01/05/20 16:29 Toxic Granulation Not Reportable 01/05/20 16:29 Toxic Vacuolation Not Reportable 01/05/20 16:29 Dohle Bodies Not Reportable 01/05/20 16:29 Pelger-Huet Anomaly Not Reportable 01/05/20 16:29 Adwoa Rods Not Reportable 01/05/20 16:29 Platelet Estimate Not Reportable 01/05/20 16:29 Clumped Platelets Not Reportable 01/05/20 16:29 Plt Clumps, EDTA Not Reportable 01/05/20 16:29 Large Platelets Not Reportable 01/05/20 16:29 Giant Platelets Not Reportable 01/05/20 16:29 Platelet Satelliting Not Reportable 01/05/20 16:29 Plt Morphology Comment Not Reportable 01/05/20 16:29 RBC Morphology Not Reportable 01/05/20 16:29 Dimorphic RBCs Not Reportable 01/05/20 16:29 Polychromasia Not Reportable 01/05/20 16:29 Hypochromasia Not Reportable 01/05/20 16:29 Poikilocytosis 2+ 01/05/20 16:29 Anisocytosis 2+ 01/05/20 16:29 Microcytosis Not Reportable 01/05/20 16:29 Macrocytosis Not Reportable 01/05/20 16:29 Spherocytes Not Reportable 01/05/20 16:29 Pappenheimer Bodies Not Reportable 01/05/20 16:29 Sickle Cells Few 01/05/20 16:29 Target Cells 1+ 01/05/20 16:29 Tear Drop Cells Rare 01/05/20 16:29 Ovalocytes Rare 01/05/20 16:29 Helmet Cells Not Reportable 01/05/20 16:29 Brown-Kerrick Bodies Not Reportable 01/05/20 16:29 Cucumber Rings Not Reportable 01/05/20 16:29 [place] Cells Not Reportable 01/05/20 16:29 Bite Cells Not Reportable 01/05/20 16:29 Crenated Cell Not Reportable 01/05/20 16:29 Elliptocytes Few 01/05/20 16:29 Acanthocytes (Spur) Not Reportable 01/05/20 16:29 Rouleaux Not Reportable 01/05/20 16:29 Hemoglobin C Crystals Not Reportable 01/05/20 16:29 Schistocytes Not Reportable 01/05/20 16:29 Malaria parasites Not Reportable 01/05/20 16:29 Percent Retic 8.02 % (0.78-2.58) H 01/05/20 16:29 Jose Luis Bodies Not Reportable 01/05/20 16:29 Hem Pathologist Commnt No 01/05/20 16:29 Sodium 140 mmol/L (137-145) 01/05/20 16:29 Potassium 4.3 mmol/L (3.6-5.0) 01/05/20 16:29 Chloride 103.5 mmol/L (98-107) 01/05/20 16:29 Carbon Dioxide 22 mmol/L (22-30) 01/05/20 16:29 Anion Gap 19 mmol/L 01/05/20 16:29 BUN 5 mg/dL (7-17) L 01/05/20 16:29 Creatinine 0.5 mg/dL (0.6-1.2) L 01/05/20 16:29 Estimated GFR > 60 ml/min 01/05/20 16:29 BUN/Creatinine Ratio 10 % 01/05/20 16:29 Glucose 91 mg/dL (65-100) 01/05/20 16:29 Calcium 9.9 mg/dL (8.4-10.2) 01/05/20 16:29 Total Bilirubin 1.60 mg/dL (0.1-1.2) H 01/05/20 16:29 AST 27 units/L (5-40) 01/05/20 16:29 ALT 28 units/L (7-56) 01/05/20 16:29 Alkaline Phosphatase 96 units/L (35-129) 01/05/20 16:29 Total Protein 7.9 g/dL (6.3-8.2) 01/05/20 16:29 Albumin 5.0 g/dL (3.9-5) 01/05/20 16:29 Albumin/Globulin Ratio 1.7 % 01/05/20 16:29 Simmons/IV: IV Catheter Type [Right INT / Saline Lock External Jugular] Active Medications - Current Medications Current Medications: Generic Name Dose Route Start Last Admin Trade Name Freq PRN Reason Stop Dose Admin Acetaminophen 650 mg 01/06/20 08:00 Tylenol PO Q4H PRN Pain, Mild (1-3) Albuterol 2.5 mg 01/06/20 08:00 Proventil IH QIDRT PRN Shortness Of Breath Bisacodyl 10 mg 01/06/20 07:54 Dulcolax [place] QDAY PRN Constipation unrelieved by MOM Diphenhydramine HCl 25 mg 01/06/20 08:09 Benadryl IV Q4H PRN Itching Enoxaparin Sodium 40 mg 01/06/20 22:00 Enoxaparin SUB-Q QDAY@2200 TEJAL Folic Acid 1 mg 01/06/20 10:00 Folvite PO QDAY TEJAL Hydromorphone HCl 2 mg 01/06/20 00:22 01/06/20 07:45 Dilaudid IV 01/07/20 00:21 2 mg Q2H PRN Administration Pain , Severe (7-10) Hydroxyurea 1,500 mg 01/06/20 10:00 Hydroxyurea PO DAILY TEJAL Magnesium Hydroxide 30 ml 01/06/20 07:54 Milk Of Magnesia PO Q4H PRN Constipation Mineral Oil 133 ml 01/06/20 07:54 Fleet Mineral Oil [place] ONCE PRN Constipation Multivitamins 1 each 01/06/20 10:00 Theragran Tab PO QDAY [facility] Multivitamins 1 each 01/06/20 10:00 Theragran Tab PO QDAY [facility] Ondansetron HCl 4 mg 01/06/20 00:22 01/06/20 07:50 Zofran IV 4 mg Q8H PRN Administration Nausea And Vomiting Oxycodone/Acetaminophen 1 tab 01/06/20 07:54 Percocet 5/325 PO Q6H PRN Pain, Moderate (4-6) Prednisone 20 mg 01/06/20 10:00 Deltasone PO QDAY [facility] Senna 17.2 mg 01/06/20 22:00 Senokot PO QHS [facility] Sodium Chloride 10 ml 01/06/20 10:00 Sodium Chloride Flush Syringe 10 Ml IV BID TEJAL Sodium Chloride 10 ml 01/06/20 00:22 Sodium Chloride Flush Syringe 10 Ml IV PRN PRN LINE FLUSH
[2020-01-06] MEDS ORDERED: FOLIC ACID 1 MG TAB ONE (09:58)
[2020-01-06] MEDS ORDERED: predniSONE 20 MG TAB ONE (09:58)
[2020-01-06] MEDS ORDERED: MULTIVITAMINS ,THERAPEUTIC TAB PO ONE (09:58)
[2020-01-06] MEDS ORDERED: FOLIC ACID 1 MG TAB PO SCH (10:00)
[2020-01-06] MEDS ORDERED: MULTIVITAMINS ,THERAPEUTIC TAB PO SCH (10:00)
[2020-01-06] MEDS: FOLIC ACID 1 MG TAB PO SCH (10:12)
[2020-01-06] MEDS: predniSONE 20 MG TAB PO SCH (10:12)
[2020-01-06] MEDS: MULTIVITAMINS ,THERAPEUTIC TAB PO SCH (10:12)
[2020-01-06] MEDS: HYDROXYUREA 500 MG CAP PO SCH (10:12)
[2020-01-06] MEDS: D5W/0.45% NACL 1,000 ML IV SCH ×2 (11:15→21:58)
[2020-01-06] MEDS ORDERED: oxyCODONE /ACETAMINOPHEN 5-325MG TAB ONE (13:11)
[2020-01-06] MEDS: oxyCODONE /ACETAMINOPHEN 5-325MG TAB PO PRN ×2 (13:15→23:40)
[2020-01-06] MEDS: diphenhydrAMINE 50 MG/ML VIAL IV PRN ×2 (13:17→22:26)
[2020-01-06] MEDS ORDERED: ACETAMINOPHEN 325 MG TAB ONE (16:54)
[2020-01-06] MEDS: SENNOSIDES 8.6 MG TAB PO SCH (21:58)
[2020-01-06] MEDS: ENOXAPARIN 40 MG/0.4 ML INJ SUB-Q SCH (21:59)
[2020-01-07] MEDS: diphenhydrAMINE 50 MG/ML VIAL IV PRN ×5 (02:14→23:34)
[2020-01-07] MEDS: HYDROmorphone 1 MG/1 ML INJ IV PRN ×8 (02:15→23:34)
[2020-01-07] MEDS: ONDANSETRON 4 MG/2 ML INJ IV PRN ×3 (02:32→20:19)
[2020-01-07] MEDS: oxyCODONE /ACETAMINOPHEN 5-325MG TAB PO PRN (05:32)
[2020-01-07 06:44] LABS: Hematocrit 28.2 % (30.3-42.9); Hemoglobin 9.2 gm/dl (10.1-14.3); Mean Corpuscular HGB Conc 33 % (30-34); Mean Corpuscular Volume 84 fl (79-97); Platelet Count 377 K/mm3 (140-440); Red Blood Count 3.36 M/mm3 (3.65-5.03)
[2020-01-07 06:55] LABS: Red Cell Distribution Width 23.7 % (13.2-15.2)
[2020-01-07 07:00] LABS: Blood Urea Nitrogen 7 mg/dL (7-17); Calcium 9.5 mg/dL (8.4-10.2); Hemolysis Index 29
[2020-01-07 07:15] LABS: BUN/Creatinine Ratio 14
[2020-01-07 07:27] LABS: INR 1.12 (0.87-1.13)
[2020-01-07] MEDS: D5W/0.45% NACL 1,000 ML IV SCH ×2 (08:09→17:39)
[2020-01-07 08:52] LABS: Anisocytosis 2+; Poikilocytosis 2+; Sickle Cells Few; Total Cells Counted 100
[2020-01-07 08:53] LABS: Giant Platelets Rare; Large Platelets Few; Ovalocytes Rare; Platelet Estimate Consistent w Auto; Target Cells Few; Tear Drop Cells Rare
[2020-01-07] MEDS: predniSONE 20 MG TAB PO SCH (09:07)
[2020-01-07] MEDS: MULTIVITAMINS ,THERAPEUTIC TAB PO SCH (09:07)
[2020-01-07] MEDS: FOLIC ACID 1 MG TAB PO SCH (09:08)
[2020-01-07] MEDS: levoFLOXacin 500 MG TAB PO SCH (09:08)
[2020-01-07] MEDS ORDERED: oxyCODONE /ACETAMINOPHEN 5-325MG TAB PO PRN (09:31)
--- NOTE | 2020-01-07 11:41 | Progress Note ---
Assessment and Plan Assessment and plan: 24-year-old -N[place]ian female with known history of sickle cell disease presenting to the emergency room today complaining of bilateral lower extremity pain which started about a week ago. Patient states she has been taking pain medication oxycodone 10/325 mg without any significant improvement. She also has been compliant with all the medications for sickle cell disease. She denies any fever or chills, no chest pain or shortness of breath, no nausea vomiting, no abdominal pain, no diarrhea, no headache or dizziness. No extremity pain is worse upon movement and improves when resting. She denies any sick contacts and no recent travel. She denies contact with anyone with COVID-19. Patient reports she has pain meds at home, she has a port scheduled for Monday 01/08. 01/06: Patient is a difficult stick, Will Place Fentanly patch for better control. Hopefully better pain control so patient can be discharged in am and have outpatient Port as planned on thursday. 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 Plan of care discussed with the patient and staff DVT/GI prophy History Interval history: Admitted with Bilateral lower ext x 1 week now spreading. Patient seen and examined still with severe distress Secondary to pain. IV site not working, patient is a hard stick and planned for port placement out patient Thursday. No associated nausea and vomiting. Pain is 10/10 at the time of my visit. Hospitalist Physical - Physical exam Narrative exam: General appearance: Present: no acute distress, mild distress secondary to Pain, well-nourished, obese - EENT Eyes: Present: EOM intact - Neck Neck: Present: supple, normal ROM - Respiratory Respiratory effort: normal Respiratory: bilateral: CTA - Cardiovascular Rhythm: regular Heart Sounds: Present: S1 & S2. Absent: systolic murmur, diastolic murmur - Extremities Extremities: no ischemia, pulses intact, No edema, Full ROM Peripheral Pulses: within normal limits - Abdominal General gastrointestinal: soft, non-tender, non-distended, normal bowel sounds - Integumentary Integumentary: Present: warm (SOME RASH EXIST) - Psychiatric Psychiatric: intact judgment & insight, cooperative, other (ANXIOUS) - Neurologic Neurologic: CNII-XII intact, moves all extremities - Allied Health Allied health notes reviewed: nursing - Constitutional Vitals: Temp Pulse Resp BP Pulse Ox 98.0 F 95 H 20 100/44 96 01/07/20 05:58 01/07/20 05:58 01/07/20 05:58 01/07/20 05:58 01/07/20 05:58 General appearance: Present: no acute distress, mild distress, well-nourished, obese Results - Labs CBC & Chem 7: 01/07/20 05:42 01/07/20 05:42 Labs: Laboratory Last Values WBC 16.2 K/mm3 (4.5-11.0) H 01/07/20 05:42 RBC 3.36 M/mm3 (3.65-5.03) L 01/07/20 05:42 Hgb 9.2 gm/dl (10.1-14.3) L 01/07/20 05:42 Hct 28.2 % (30.3-42.9) L 01/07/20 05:42 MCV 84 fl (79-97) 01/07/20 05:42 MCH 28 pg (28-32) 01/07/20 05:42 MCHC 33 % (30-34) 01/07/20 05:42 RDW 23.7 % (13.2-15.2) H 01/07/20 05:42 Plt Count 377 K/mm3 (140-440) 01/07/20 05:42 Lymph # Production Assembler 01/07/20 05:42 Add Manual Diff Complete 01/07/20 05:42 Total Counted 100 01/07/20 05:42 Seg Neuts % (Manual) 57.0 % (40.0-70.0) 01/07/20 05:42 Band Neutrophils % 0 % 01/07/20 05:42 Lymphocytes % (Manual) 34.0 % (13.4-35.0) 01/07/20 05:42 Reactive Lymphs % (Man) 0 % 01/07/20 05:42 Monocytes % (Manual) 6.0 % (0.0-7.3) 01/07/20 05:42 Eosinophils % (Manual) 2.0 % (0.0-4.3) 01/07/20 05:42 Basophils % (Manual) 1.0 % (0.0-1.8) 01/07/20 05:42 Metamyelocytes % 0 % 01/07/20 05:42 Myelocytes % 0 % 01/07/20 05:42 Promyelocytes % 0 % 01/07/20 05:42 Blast Cells % 0 % 01/07/20 05:42 Nucleated RBC % 1.0 % (0.0-0.9) H 01/07/20 05:42 Seg Neutrophils # Man 9.2 K/mm3 (1.8-7.7) H 01/07/20 05:42 Band Neutrophils # 0.0 K/mm3 01/07/20 05:42 Lymphocytes # (Manual) 5.5 K/mm3 (1.2-5.4) H 01/07/20 05:42 Abs React Lymphs (Man) 0.0 K/mm3 01/07/20 05:42 Monocytes # (Manual) 1.0 K/mm3 (0.0-0.8) H 01/07/20 05:42 Eosinophils # (Manual) 0.3 K/mm3 (0.0-0.4) 01/07/20 05:42 Basophils # (Manual) 0.2 K/mm3 (0.0-0.1) H 01/07/20 05:42 Metamyelocytes # 0.0 K/mm3 01/07/20 05:42 Myelocytes # 0.0 K/mm3 01/07/20 05:42 Promyelocytes # 0.0 K/mm3 01/07/20 05:42 Blast Cells # 0.0 K/mm3 01/07/20 05:42 WBC Morphology Not Reportable 01/07/20 05:42 Hypersegmented Neuts Not Reportable 01/07/20 05:42 Hyposegmented Neuts Not Reportable 01/07/20 05:42 Hypogranular Neuts Not Reportable 01/07/20 05:42 Smudge Cells Not Reportable 01/07/20 05:42 Toxic Granulation Not Reportable 01/07/20 05:42 Toxic Vacuolation Not Reportable 01/07/20 05:42 Dohle Bodies Not Reportable 01/07/20 05:42 Pelger-Huet Anomaly Not Reportable 01/07/20 05:42 Adwoa Rods Not Reportable 01/07/20 05:42 Platelet Estimate Consistent w auto 01/07/20 05:42 Clumped Platelets Not Reportable 01/07/20 05:42 Plt Clumps, EDTA Not Reportable 01/07/20 05:42 Large Platelets Few 01/07/20 05:42 Giant Platelets Rare 01/07/20 05:42 Platelet Satelliting Not Reportable 01/07/20 05:42 Plt Morphology Comment Not Reportable 01/07/20 05:42 RBC Morphology Not Reportable 01/07/20 05:42 Dimorphic RBCs Not Reportable 01/07/20 05:42 Polychromasia Not Reportable 01/07/20 05:42 Hypochromasia Not Reportable 01/07/20 05:42 Poikilocytosis 2+ 01/07/20 05:42 Anisocytosis 2+ 01/07/20 05:42 Microcytosis Not Reportable 01/07/20 05:42 Macrocytosis Not Reportable 01/07/20 05:42 Spherocytes Not Reportable 01/07/20 05:42 Pappenheimer Bodies Not Reportable 01/07/20 05:42 Sickle Cells Few 01/07/20 05:42 Target Cells Few 01/07/20 05:42 Tear Drop Cells Rare 01/07/20 05:42 Ovalocytes Rare 01/07/20 05:42 Helmet Cells Not Reportable 01/07/20 05:42 [place] Bodies Not Reportable 01/07/20 05:42 [place] Rings Not Reportable 01/07/20 05:42 [place] Cells Not Reportable 01/07/20 05:42 Bite Cells Not Reportable 01/07/20 05:42 Crenated Cell Not Reportable 01/07/20 05:42 Elliptocytes Few 01/07/20 05:42 Acanthocytes (Spur) Not Reportable 01/07/20 05:42 Rouleaux Not Reportable 01/07/20 05:42 Hemoglobin C Crystals Not Reportable 01/07/20 05:42 Schistocytes Not Reportable 01/07/20 05:42 Malaria parasites Not Reportable 01/07/20 05:42 Percent Retic 8.88 % (0.78-2.58) H 01/07/20 05:42 [place] Bodies Not Reportable 01/07/20 05:42 Hem Pathologist Commnt No 01/07/20 05:42 PT 14.5 Sec. (12.2-14.9) 01/07/20 05:42 INR 1.12 (0.87-1.13) 01/07/20 05:42 Sodium 139 mmol/L (137-145) 01/07/20 05:42 Potassium 3.9 mmol/L (3.6-5.0) 01/07/20 05:42 Chloride 102.0 mmol/L (98-107) 01/07/20 05:42 Carbon Dioxide 23 mmol/L (22-30) 01/07/20 05:42 Anion Gap 18 mmol/L 01/07/20 05:42 BUN 7 mg/dL (7-17) 01/07/20 05:42 Creatinine 0.5 mg/dL (0.6-1.2) L 01/07/20 05:42 Estimated GFR > 60 ml/min 01/07/20 05:42 BUN/Creatinine Ratio 14 % 01/07/20 05:42 Glucose 91 mg/dL (65-100) 01/07/20 05:42 Calcium 9.5 mg/dL (8.4-10.2) 01/07/20 05:42 Total Bilirubin 1.60 mg/dL (0.1-1.2) H 01/05/20 16:29 AST 27 units/L (5-40) 01/05/20 16:29 ALT 28 units/L (7-56) 01/05/20 16:29 Alkaline Phosphatase 96 units/L (35-129) 01/05/20 16:29 Lactate Dehydrogenase 273 units/L (91-180) H 01/07/20 05:42 Total Protein 7.9 g/dL (6.3-8.2) 01/05/20 16:29 Albumin 5.0 g/dL (3.9-5) 01/05/20 16:29 Albumin/Globulin Ratio 1.7 % 01/05/20 16:29 Simmons/IV: Voiding Method Toilet IV Catheter Type [Right INT / Saline Lock External Jugular] Active Medications - Current Medications Current Medications: Generic Name Dose Route Start Last Admin Trade Name Freq PRN Reason Stop Dose Admin Acetaminophen 650 mg 01/06/20 08:00 01/06/20 16:54 Tylenol PO 650 mg Q4H PRN Administration Pain, Mild (1-3) Albuterol 2.5 mg 01/06/20 08:00 Proventil IH QIDRT PRN Shortness Of Breath Bisacodyl 10 mg 01/06/20 10:00 Dulcolax [place] QDAY PRN Constipation unrelieved by MOM Diphenhydramine HCl 25 mg 01/06/20 09:00 01/07/20 08:05 Benadryl IV 25 mg Q4H PRN Administration Itching Enoxaparin Sodium 40 mg 01/06/20 22:00 01/06/20 21:59 Enoxaparin SUB-Q 40 mg QDAY@2200 TEJAL Administration Fentanyl 25 mcg 01/10/20 10:00 Duragesic TD Q3D TEJAL Folic Acid 1 mg 01/06/20 10:00 01/07/20 09:08 Folvite PO 1 mg QDAY TEJAL Administration Hydromorphone HCl 2 mg 01/07/20 09:31 01/07/20 11:06 Dilaudid IV 2 mg Q3H PRN Administration Pain , Severe (7-10) Hydroxyurea 1,500 mg 01/06/20 10:00 01/06/20 10:12 Hydroxyurea PO 1,500 mg DAILY TEJAL Administration Dextrose/Sodium Chloride 1,000 mls @ 150 mls/hr 01/06/20 09:00 01/07/20 08:09 D5/0.45ns IV 125 mls/hr DIRECT TEJAL Administration Levofloxacin 500 mg 01/07/20 10:00 01/07/20 09:08 Levaquin PO 500 mg Q24HR TEJAL Administration Magnesium Hydroxide 30 ml 01/06/20 09:00 Milk Of Magnesia PO Q4H PRN Constipation Mineral Oil 133 ml 01/06/20 07:54 Fleet Mineral Oil [place] ONCE PRN Constipation Multivitamins 1 each 01/06/20 10:00 01/07/20 09:07 Theragran Tab PO 1 each QDAY TEJAL Administration Ondansetron HCl 4 mg 01/06/20 00:22 01/07/20 11:07 Zofran IV 4 mg Q8H PRN Administration Nausea And Vomiting Prednisone 20 mg 01/06/20 10:00 01/07/20 09:07 Deltasone PO 20 mg QDAY TEJAL Administration Senna 17.2 mg 01/06/20 22:00 01/06/20 21:58 Senokot PO 17.2 mg QHS TEJAL Administration Sodium Chloride 10 ml 01/06/20 10:00 01/07/20 09:08 Sodium Chloride Flush Syringe 10 Ml IV 10 ml BID TEJAL Administration Sodium Chloride 10 ml 01/06/20 00:22 Sodium Chloride Flush Syringe 10 Ml IV PRN PRN LINE FLUSH
[2020-01-07] MEDS ORDERED: fentaNYL 25 MCG/HR PATCH 72HR TD SCH (12:00)
[2020-01-07] MEDS: HYDROXYUREA 500 MG CAP PO SCH (12:16)
[2020-01-07] MEDS: MAGNESIUM HYDROXIDE (MOM) ORAL LIQD UDC PO PRN ×3 (14:11→20:35)
[2020-01-07] MEDS: SENNOSIDES 8.6 MG TAB PO SCH (21:07)
[2020-01-07] MEDS: ENOXAPARIN 40 MG/0.4 ML INJ SUB-Q SCH (21:07)
[2020-01-08] MEDS: D5W/0.45% NACL 1,000 ML IV SCH ×2 (00:36→06:31)
[2020-01-08] MEDS: oxyCODONE /ACETAMINOPHEN 5-325MG TAB PO PRN ×2 (00:38→04:50)
[2020-01-08] MEDS: ONDANSETRON 4 MG/2 ML INJ IV PRN ×2 (03:01→12:47)
[2020-01-08] MEDS: diphenhydrAMINE 50 MG/ML VIAL IV PRN ×3 (03:01→10:15)
[2020-01-08] MEDS: HYDROmorphone 1 MG/1 ML INJ IV PRN ×4 (03:01→12:46)
[2020-01-08] MEDS: MAGNESIUM HYDROXIDE (MOM) ORAL LIQD UDC PO PRN ×2 (03:08→10:15)
[2020-01-08 06:40] VITALS: BP 129/76
[2020-01-08 07:40] LABS: Hematocrit 27.3 % (30.3-42.9); Mean Corpuscular HGB Conc 33 % (30-34); Mean Corpuscular Volume 84 fl (79-97); Platelet Count 396 K/mm3 (140-440); Red Blood Count 3.25 M/mm3 (3.65-5.03)
[2020-01-08 07:47] LABS: Red Cell Distribution Width 23.7 % (13.2-15.2)
[2020-01-08 07:54] LABS: Basophils # (Auto) 0.1 K/mm3 (0.0-0.1); Basophils % (Auto) 0.4 % (0.0-1.8); Eosinophils # (Auto) 0.2 K/mm3 (0.0-0.4); Eosinophils % (Auto) 0.9 % (0.0-4.3); Lymphocytes % (Auto) 34.6 % (13.4-35.0); Monocytes # (Auto) 1.9 K/mm3 (0.0-0.8); Monocytes % (Auto) 10.4 % (0.0-7.3)
[2020-01-08 08:45] LABS: Basophils % (Manual) 0 % (0.0-1.8); Eosinophils % (Manual) 0 % (0.0-4.3); Total Cells Counted 100
[2020-01-08 08:47] LABS: Anisocytosis 2+; Giant Platelets Few; Macrocytosis 1+; Platelet Estimate Consistent w Auto; Sickle Cells Rare; Target Cells Few
[2020-01-08] MEDS: levoFLOXacin 500 MG TAB PO SCH (09:28)
[2020-01-08] MEDS: predniSONE 20 MG TAB PO SCH (09:28)
[2020-01-08] MEDS: MULTIVITAMINS ,THERAPEUTIC TAB PO SCH (09:28)
[2020-01-08] MEDS: HYDROXYUREA 500 MG CAP PO SCH (09:28)
[2020-01-08] MEDS: FOLIC ACID 1 MG TAB PO SCH (09:28)
--- NOTE | 2020-01-08 10:09 | Discharge Summary ---
Providers - Providers Date of Admission: 01/06/20 08:37 Attending physician: MOHINDER GAONA MD Primary care physician: [employer] Hospitalization Reason for admission: SICKLE CELL CRISIS Condition: Stable Hospital course: 24-year-old -[place] female with known history of sickle cell disease presenting to the emergency room today complaining of bilateral lower extremity pain which started about a week ago. Patient states she has been taking pain medication oxycodone 10/325 mg without any significant improvement. She also has been compliant with all the medications for sickle cell disease. She denies any fever or chills, no chest pain or shortness of breath, no nausea vomiting, no abdominal pain, no diarrhea, no headache or dizziness. No extremity pain is worse upon movement and improves when resting. She denies any sick contacts and no recent travel. She denies contact with anyone with COVID-19. Patient reports she has pain meds at home, she has a port scheduled for Monday 01/08. 01/06: Patient is a difficult stick, Will Place Fentanly patch for better control. Hopefully better pain control so patient can be discharged in am and have outpatient Port as planned on thursday. Per patient she was on depo shot, will like outpatient [facility]. 01/07: Patient states that she is improving, plans to follow at [place] for Port placment tomorrow. She states she has enough meds at home to last her to her next appointment. No source of infection found, but will continue emperic antibotics coverage for 3 days. Bilateral Lower ext Pain secondary to Sickle cell crisis with pain scale of 10/10 despite multiple pain meds Leukocytosois- Likely reactive Sickle cell crisis Chronic Pain syndrome Obese Allergic Reaction Amenorrhea Disposition: DC-01 TO HOME OR SELFCARE Time spent for discharge: 35 MINS Core Measure Documentation - Palliative Care Palliative Care/ Comfort Measures: Not Applicable - Core Measures Any of the following diagnoses?: none Exam - Physical Exam Narrative exam: General appearance: Present: no acute distress, NO Distress well-nourished, obese - EENT Eyes: Present: EOM intact - Neck Neck: Present: supple, normal ROM - Respiratory Respiratory effort: normal Respiratory: bilateral: CTA - Cardiovascular Rhythm: regular Heart Sounds: Present: S1 & S2. Absent: systolic murmur, diastolic murmur - Extremities Extremities: no ischemia, pulses intact, No edema, Full ROM Peripheral Pulses: within normal limits - Abdominal General gastrointestinal: soft, non-tender, non-distended, normal bowel sounds - Integumentary Integumentary: Present: warm (SOME RASH EXIST) - Psychiatric Psychiatric: intact judgment & insight, cooperative, other (ANXIOUS) - Neurologic Neurologic: CNII-XII intact, moves all extremities - Allied Health Allied health notes reviewed: nursing - Constitutional Vitals: Temp Pulse Resp BP Pulse Ox 98.1 F 76 20 129/76 99 01/08/20 05:13 01/08/20 05:08 01/08/20 07:04 01/08/20 05:08 01/08/20 05:08 Plan Activity: advance as tolerated, fall precautions Diet: low fat Special Instructions: record daily weights, record daily BP diary Follow up with: DHAVAL SPARKS MD [Staff Physician] - 7 Days PRIMARY CARE, [Primary Care Provider] - 7 Days Prescriptions: levoFLOXacin [Levaquin TAB] 500 mg PO Q24HR #3 tablet
== END 2020-01-08 13:02 | disposition home or self-care (01) | DRG 812 ==
LOC: ED 16:10 → 3A 23:23 → OBSVTOIN 01-06 08:37 → 3A 01-06 14:46
PROVIDERS: ADMIT Internal Medicine Geriatric Medicine; ATTEND Internal Medicine
DX: D57.00 Hb-SS disease with crisis, unspecified (principal); M41.9 Scoliosis, unspecified; F41.9 Anxiety disorder, unspecified; J45.909 Unspecified asthma, uncomplicated; D72.829 Elevated white blood cell count, unspecified; E66.9 Obesity, unspecified; G89.4 Chronic pain syndrome; N91.2 Amenorrhea, unspecified; Z68.36 Body mass index [BMI] 36.0-36.9, adult; Z79.891 Long term (current) use of opiate analgesic; Z79.899 Other long term (current) drug therapy; Z88.1 Allergy status to other antibiotic agents; Z88.5 Allergy status to narcotic agent; Z91.010 Allergy to peanuts; Z88.8 Allergy status to other drugs, medicaments and biological substances; Z91.09 Other allergy status, other than to drugs and biological substances; Z90.81 Acquired absence of spleen; Z79.2 Long term (current) use of antibiotics; Z90.49 Acquired absence of other specified parts of digestive tract
CPT/HCPCS: 36415; 80048; 80053; 83615; 85007; 85025; 85045; 85610; G0378; J1170; J1200; J1630; J1650; J2060; J2405; J3010; J7030; J7512

== ENCOUNTER 2020-03-20 18:11 | Emergency (ER) | payer MEDICAID | END 2020-03-20 18:45 | disposition left against medical advice (07) | LOC: ED 18:11 | DX: Z53.21 Procedure and treatment not carried out due to patient leaving prior to being seen by health care provider (principal) ==